=== PATIENT | female | born 1950 | race Caucasian/White ===

== ENCOUNTER 2017-06-12 03:05 | Inpatient (IN) | payer OTHER, MEDICARE ==
[~2017-06-12] VITALS: Ht 172.7 cm; Wt 82.4 kg
[~2017-06-12 03:05] MED LIST: ALEN35TA PO; ARIP10TA15 PO; BENZ1TAB22 GT; BISA5TAB10 PO; CALC-883 PO; DOCU250C34 GT; FAMO20TA8 PO; GABA300C PO; INSU100C7 SQ; MAGN355O3 PO; METF850T2 PO; TOLT4CAP PO; TRAZ-144 PO; TRIA1TAB98 PO
--- NOTE | 2017-06-12 03:05 | NUR ---
TO BED 5 BIB PARAMEDICS C/O SOB X2 MIN SENIOR JAVA PROGRAMMER, RHONCHI HEARD BILATERALLY ON AUSCULTATION. PT AAOX4 NO ACUTE DISTRESS NOTED, RESP EVEN AND UNLABORED. PT ON HHN TX UPON ARRIVAL TO ER. PLACE PT ON CARDIAC MONITORING, CONTINUOUS POX, O2@2L/NC. SL 20G TO L HAND SENIOR JAVA PROGRAMMER.
[2017-06-12] MEDS ORDERED: IPRATROPIUM NEB FS 0.5 MG/2.5 ML AMPUL.NEB ONE (03:12)
[2017-06-12] MEDS ORDERED: ALBUTEROL FS 2.5 MG/3 ML VIAL.NEB ONE ×2 (03:12)
--- NOTE | 2017-06-12 03:15 | NUR ---
STARTED SL 18G TO R FOREARM, BLOOD DRAWN AND SENT TO LAB.
[2017-06-12] MEDS ORDERED: DEXAMETHASONE SOD PHOSPHATE 10 MG/ML VIAL IV ONE (03:30)
[2017-06-12] MEDS ORDERED: ALBUTEROL FS 2.5 MG/3 ML VIAL.NEB NEB ONE ×2 (03:30→04:30)
[2017-06-12] MEDS ORDERED: IPRATROPIUM NEB FS 0.5 MG/2.5 ML AMPUL.NEB NEB ONE (03:30)
--- NOTE | 2017-06-12 03:39 | NUR ---
PT TRANSPORTED TO RADIOLOGY FOR CT.
[2017-06-12 03:44] LABS: BASOPHILS % (AUTO) 0.2 % (0.0-2.0); HEMATOCRIT 33 % (33-45); HEMOGLOBIN 10.5 g/dL (11.5-14.8); LYMPHOCYTES # (AUTO) 0.9 /CMM (0.8-4.8); LYMPHOCYTES % (AUTO) 9.9 % (20.0-44.0); MEAN CORPUSCULAR HEMOGLOBIN 27 PG (26.0-33.0); MEAN CORPUSCULAR HGB CONC 32 g/dl (31.0-36.0); MEAN CORPUSCULAR VOLUME 83 fL (82-100); MONOCYTES # (AUTO) 0.6 /CMM (0.1-1.30); MONOCYTES % (AUTO) 6.5 % (2.0-12.0); NEUTROPHILS # (AUTO) 7.3 /CMM (1.8-8.9); NEUTROPHILS % (AUTO) 83.4 % (43.0-81.0); PLATELET COUNT (AUTO) 336 /CMM (150-450); RDW COEFFICIENT OF VARIATION 17.3 (11.5-15.0); RED BLOOD CELL COUNT(AUTO) 3.97 MIL/uL (4.0-5.2); WHITE BLOOD COUNT (AUTO) 8.8 K/uL (4.3-11.0)
[2017-06-12 03:51] LABS: CALCIUM, SERUM 10.3 mg/dL (8.5-10.1); CREATININE 1.2 mg/dL (0.6-1.3)
[2017-06-12] MEDS ORDERED: DEXAMETHASONE SOD PHOSPHATE 10 MG/ML VIAL ONE (03:51)
[2017-06-12 03:59] LABS: TROPONIN I 0.072 ng/mL (0.00-0.056)
--- NOTE | 2017-06-12 04:00 | NUR ---
PT BACK FROM RADIOLOGY. PENDING CT REASULT.
[2017-06-12 04:01] LABS: INR 3.06 (0.87-1.13); PROTHROMBIN TIME 35.2 SECS (9.5-12.7)
[2017-06-12] MEDS ORDERED: ALBUTEROL FS 2.5 MG/0.5 ML VIAL.NEB ONE (04:02)
[2017-06-12 04:04] LABS: ALBUMIN 2.1 g/dL (3.4-5.0); BILIRUBIN,DIRECT 0.1 mg/dL (0.0-0.2); BILIRUBIN,TOTAL 0.3 mg/dL (0.2-1.0); TOTAL PROTEIN, SERUM 7.7 g/dL (6.4-8.2)
[2017-06-12] MEDS ORDERED: IV NS 0.9% 250 ML IV ONE (04:07)
[2017-06-12] MEDS ORDERED: IOHEXOL-350 100 ML VIAL IV ONE (04:07)
[2017-06-12] MEDS ORDERED: ASPIRIN 300 MG/SUPP.RECT RC ONE ×2 (04:30→05:55)
[2017-06-12] MEDS ORDERED: FUROSEMIDE 20 MG/2 ML VIAL IV SCH (05:30)
[2017-06-12] MEDS ORDERED: BISACODYL (5 MG) 5 MG TABLET.DR PO PRN (05:30)
[2017-06-12] MEDS ORDERED: ONDANSETRON HCL/PF 4 MG/2 ML VIAL IVP PRN (05:30)
[2017-06-12 05:34] LABS: APPEARANCE,URINE SL CLOUDY (CLEAR); BILIRUBIN,URINE NEGATIVE (NEGATIVE); BLOOD, URINE 2+ Ery/uL (NEGATIVE); COLOR,URINE YELLOW (YELLOW); KETONES,URINE NEGATIVE (NEGATIVE); LEUKOCYTE ESTERASE ,URINE 2+ (NEGATIVE); NITRITE, URINE POSITIVE (NEGATIVE); PH,URINE 8.5 (5.0-8.0); PROTEIN,URINE 2+ mg/dl (NEGATIVE); UGLUCOSE NEGATIVE (NEGATIVE); UROBILINOGEN,URINE 0.2 EU/dL (0.2)
[2017-06-12] MEDS ORDERED: DOXYCYCLINE 100 MG VIAL ONE (06:18)
--- NOTE | 2017-06-12 06:21 | NUR ---
RICO RN NOTES RECEIVED REPORT FROM ER NURSE ED
--- NOTE | 2017-06-12 06:22 | NUR ---
ER SPOKE TO IRAM SANCHEZ DNP REGARDING PT ADMISSION. REPORT CALLED TO TELE 1 FOREIGN RASHID. WILL TRANSPORT PT VIA ACLS PROTOCOL.
[2017-06-12 06:30] VITALS: BP 132/58
[2017-06-12] MEDS ORDERED: DOXYCYCLINE 100 MG in IV D5W 100 ML IV SCH (06:30)
--- NOTE | 2017-06-12 06:30 | NUR ---
RICO RN INITIAL NOTES RECEIVED PATIENT VIA EDITH, AWAKE, ALERT, SMILING. UNABLE TO STATE NAME, PLACE, TIME, OR ENVIRONMENT. NO S/S OF PAIN OR DISCOMFORT. NO RESPIRATORY DISTRESS NOTED ON 2LPMO2 VIA NC. SPO2 92%SKIN WARM AND DRY TO TOUCH. PLACED ON TELE MONITOR, SR WITH BBB, PVCS, FIRST DEGREE HB 91. WITH LH 20G PATENT AND INTACT, RFA 18G WITH DOXYCYLINE RUNNING. PLACED PATIENT COMFORTABLY IN BED. PATIENT PLACE COMFORTABLY IN BED. HOB ELEVATED. SIDE RAILS UP AND LOCKED. BED KEPT AT LOWEST POSITION. CALL LIGHT KEPT WITHIN EASY REACH. WILL ENDORSE CONTINUITY OF CARE TO AM NURSE. Addendum: 06/12/17 at 0659 by RACHID OLIVAS RN PER ER REPORT PATIENT HAD LARGE BM BEFORE TRANSFER. PATIENT WITH F/C PATENT AND INTACT, DRAINING BY GRAVITY YELLOW OUTPUT WITH SEDIMENTS.
[2017-06-12 06:32] LABS: BACTERIA,URINE Moderate /HPF (None Seen); SQUAMOUS EPITHELIAL CELL,UR Few /HPF (None Seen)
[2017-06-12 06:33] LABS: TRIPLE PHOSPHATE CRYSTAL,UR Many /HPF (None Seen); URINE AMORPHOUS PHOSPHATES Many /HPF (None Seen)
[2017-06-12 06:43] VITALS: BP 137/50
[2017-06-12] MEDS: IPRATROPIUM NEB FS 0.5 MG/2.5 ML AMPUL.NEB NEB SCH ×5 (07:35→22:57)
[2017-06-12] MEDS: ALBUTEROL FS 2.5 MG/0.5 ML VIAL.NEB NEB SCH ×5 (07:35→22:57)
[2017-06-12 08:00] VITALS: BP 148/76
--- NOTE | 2017-06-12 08:00 | NUR ---
RICO RN NOTE RECEIVED PATIENT IN BED SLEEPING BUR AROUSAL TO TACTILE AND DAMARIS BALE STIMULI , PLACED ON O2 2L NOTED SAT 88-89% , KEEP HOB ELEVATED , NO SOB NOTED , VITAL SIN TAKEN , ON TELE MONITOR SR WITH BBB AND [address] DEG[address] AV BLOCK . RT FA HL INTACT AND PATENT NO S\S INFECTION NOTED, BED IN LOWEST AND LOCKED POSITION , CALL LIGHT WITHIN REACH , Addendum: 06/12/17 at 1120 by MYA OVALLE RN 0800 sleeping but arousal to tactile and verbal stimuli
[2017-06-12 08:16] LABS: ABG BASE EXCESS -2.9 mmol/L; ABG OXYGEN SATURATION 88.9 % (92.0-98.5); ABG PCO2 38.9 mmHg (35.0-45.0); ABG PH 7.372 (7.350-7.450); ABG PO2 59.8 mmHg (75.0-100.0); AaDO2 93.9 mmHg; COHb 0.4 % (0.5-1.5); MetHb 0.5 % (0.0-1.5); O2Hb 88.1 % (94.0-97.0); SITE, ABG Right Brachial
--- NOTE | 2017-06-12 08:30 | NUR ---
RICO RN NOTE CALLED RT ,SAT 88% ON 2L, PATIENT LOOK LETHARGIC NOT VERBALLY RESPONSIVE WELL ,ABG ORDERED STATS,
--- NOTE | 2017-06-12 09:14 | NUR ---
RICO RN NOTE ABG DONE NO SIGNIFICANT CHANGES NOTED SAT ,NOW 96% ,WILL START TO FEED PATIENT WILL CONT TO MONITOR CLOSELY Addendum: 06/12/17 at 0917 by MYA OVALLE RN PATIENT MORE AWAKE VERBALLY RESPONSIVE
[2017-06-12] MEDS: INSULIN DETEMIR 100 UNIT/ML CARTRIDGE SQ SCH ×2 (09:30→17:09)
[2017-06-12] MEDS: DOCUSATE SODIUM 250 MG CAPSULE PO SCH (10:13)
[2017-06-12] MEDS: METFORMIN 850 MG TABLET PO SCH ×3 (10:13→16:38)
[2017-06-12] MEDS: FAMOTIDINE (20 MG) 20 MG TABLET PO SCH (10:13)
[2017-06-12] MEDS: GABAPENTIN 300 MG CAPSULE PO SCH ×3 (10:13→16:38)
[2017-06-12] MEDS: TOLTERODINE 2 MG CAP.SR PO SCH (10:13)
[2017-06-12] MEDS: methylPREDNISolone SOD SUCC 40 MG/ML VIAL IV SCH ×3 (10:13→16:38)
[2017-06-12] MEDS: BENZTROPINE MESYLATE (1 MG) 1 MG TABLET GT SCH ×2 (10:14→16:40)
[2017-06-12] MEDS: ARIPIPRAZOLE 5 MG TABLET PO SCH (10:14)
--- NOTE | 2017-06-12 10:34 | NUR ---
RICO RN NOTE DR GLEZ AT BEDSIDE AWARE ABG RESULT NO NEW ORDER GIVEN
--- NOTE | 2017-06-12 11:21 | NUR ---
lupillo rn note seen by dr bajwa asked about dvt prophylaxis , stated no dvt pumps ,only Coumadin at this time
[2017-06-12] MEDS ORDERED: IV 1/2NS 1000 ML 1,000 ML IV PRN (11:30)
[2017-06-12] MEDS: LEVOFLOXACIN (500MG) 500 MG TABLET PO SCH (11:45)
--- NOTE | 2017-06-12 11:46 | NUR ---
RICO RN NOTE STARTED ON IVVF ORDERED ,ON BREATHING TX BY RT
[2017-06-12 12:00] VITALS: BP 144/74
[2017-06-12] MEDS ORDERED: BLOOD SUGAR DIAGNOSTIC 1 EACH STRIP IN SCH (12:00)
--- NOTE | 2017-06-12 12:35 | NUR ---
RICO RN NOTE SPOKE WITH DR MOSQUERA NOTIFIED THAT BLOOD SUGAR 446 MG\DL ORDERED ACU CHECK WITH AGGRESSIVE SLIDING SCALE ORDER CARRIED OUR ALSO AWARE THAT PATIENT ON IVF AND BNP [address] THAT [address] DR GLEZ ORDERE 1/2 NS AT 80 ML PER HOUR , STATED OK TO CONT FOR NOW
[2017-06-12] MEDS ORDERED: DEXTROSE 50%-WATER 50 ML DISP.SYRIN IV PRN (13:00)
[2017-06-12] MEDS: INSULIN REGULAR, HUMAN 100 UNIT/ML 3 ML VIAL SQ PRN ×2 (13:09→17:40)
--- NOTE | 2017-06-12 14:54 | NUR ---
RICO RN NOTE SPOKE WITH DR DRISCOLL AUTO BODY MECHANIC NOTIFIED THAT INR 3.03 ON COUMADIN 2 MG OK TO GIVE TODAY THIS DOSE ALSO NOTIFIED ABOUT BNP NOTIFIED THAT ON IVF AT 80 ML PER HOUR ,STATED THAT WILL CHECK IT OUT Addendum: 06/12/17 at 1647 by MYA OVALLE RN RICO CARRASQUILLO NOTE SPOKE WIT DR DRISCOLL AUTO BODY MECHANIC NOTICED THAT BP 175/86 ORDERED HYDRALAZINE 25 MG PO Q4 HOUR PRN
[2017-06-12 16:00] VITALS: BP_SYST 144; BP_SYST 175; BP_DIAS 74; BP_DIAS 86
[2017-06-12] MEDS: WARFARIN SODIUM 2 MG TABLET PO SCH (16:38)
[2017-06-12] MEDS ORDERED: hydrALAZINE HCL 25 MG TABLET PO PRN (17:00)
--- NOTE | 2017-06-12 17:00 | NUR ---
lupillo ewing BP 175/[address] BERNARD AIRPORT REPRESENTATIVE WITH ORDER HYDRALAZINE 25 MG PO Q4 HOUR
--- NOTE | 2017-06-12 17:20 | NUR ---
RICO RN NOTE RECHECK BP 140/80, WILL F\U
[2017-06-12] MEDS: BLOOD SUGAR DIAGNOSTIC 1 EACH STRIP IN SCH ×2 (17:36→22:13)
--- NOTE | 2017-06-12 18:38 | NUR ---
RICO RN NOTE BLOOD SUGAR 430 DR HERRERA NOTIFIED 20 UNITS REGULAR INSULIN GIVEN ,STATED RECHECK AT 1930 IF STILL HIGH CALL TO
--- NOTE | 2017-06-12 19:19 | NUR ---
RICO RN NOTE RESTING COMFORTABLY , ENDORSED NEXT SHIFT RN ABOUT BLOOD SUGAR
--- NOTE | 2017-06-12 19:54 | NUR ---
RN NOTES 191 received awake in bed. On o2 inhalation; HOB elevated. Both saline locks patent and intact. Call light within reach 1934 BS rechecked as per instruction 428, sakina CLOUD non clinical advisor. Spoke to Dr. Livingston, made him aware of BS 428. Also notified him that he was given glucophage 850 @1638; levemir 30 units @ 1700; regular insulin 20 units @ 1740. Ordered to give one time regular insulin 20 units; noted and carried out. Addendum: 06/13/17 at 0651 by RISA OWUSU RN 2212 BS taken as 389, 20 units regular insulin given with snacks provided. will continue to monitor 0600 slept at long intervals. No signs of distress at this time. Condition unchanged. 0645 BS 216, covered with 8 units regular insulin. Call light within reach.
[2017-06-12 20:00] VITALS: BP 148/62
[2017-06-12] MEDS ORDERED: INSULIN REGULAR, HUMAN 100 UNIT/ML 10 ML VIAL SQ ONE (20:00)
[2017-06-12] MEDS: TRAZODONE 50 MG TABLET PO SCH (22:11)
[2017-06-12] MEDS: *INSULIN REGULAR(HUMULIN R)HUM 100 UNIT/ML VIAL SQ PRN (22:15)
[2017-06-13] VITALS: BP 144/59
[2017-06-13] MEDS: ALBUTEROL FS 2.5 MG/0.5 ML VIAL.NEB NEB SCH ×6 (03:05→23:28)
[2017-06-13] MEDS: IPRATROPIUM NEB FS 0.5 MG/2.5 ML AMPUL.NEB NEB SCH ×6 (03:05→23:28)
[2017-06-13 04:00] VITALS: BP 141/62
[2017-06-13 06:31] LABS: BASOPHILS % (AUTO) 0.1 % (0.0-2.0); EOSINOPHILS % (AUTO) 0.1 % (0.0-6.0); HEMATOCRIT 33 % (33-45); HEMOGLOBIN 10.5 g/dL (11.5-14.8); LYMPHOCYTES # (AUTO) 0.8 /CMM (0.8-4.8); LYMPHOCYTES % (AUTO) 8.1 % (20.0-44.0); MEAN CORPUSCULAR HEMOGLOBIN 27 PG (26.0-33.0); MEAN CORPUSCULAR HGB CONC 32 g/dl (31.0-36.0); MEAN CORPUSCULAR VOLUME 85 fL (82-100); MONOCYTES # (AUTO) 0.6 /CMM (0.1-1.30); MONOCYTES % (AUTO) 6.8 % (2.0-12.0); NEUTROPHILS # (AUTO) 7.9 /CMM (1.8-8.9); NEUTROPHILS % (AUTO) 84.9 % (43.0-81.0); PLATELET COUNT (AUTO) 313 /CMM (150-450); RDW COEFFICIENT OF VARIATION 16.7 (11.5-15.0); RED BLOOD CELL COUNT(AUTO) 3.87 MIL/uL (4.0-5.2); WHITE BLOOD COUNT (AUTO) 9.3 K/uL (4.3-11.0)
[2017-06-13] MEDS: BLOOD SUGAR DIAGNOSTIC 1 EACH STRIP IN SCH ×4 (06:37→21:18)
[2017-06-13] MEDS: INSULIN REGULAR, HUMAN 100 UNIT/ML 3 ML VIAL SQ PRN ×3 (06:38→16:57)
[2017-06-13 07:03] LABS: THYROID STIMULATING HORMONE 0.099 uIU/mL (0.358-3.74)
--- NOTE | 2017-06-13 07:10 | NUR ---
RICO INITIAL NOTE RECEIVED PT IN BED, ASLEEP, EASY TO AROUSE,ABLE TO FOLLOW COMMANDS, RESPONSIVE TO NAME, PT IS ON 2L NC, SATING WELL, BREATHING IS UNLABORED AND EVEN, NO S/S OF SOB OR RESP.DISTRESSED NOTED AT THIS TIME, PT IS ON TELE MONITOR SHOWING SR W/1 DEGREE AV BLOCK @ 73 BPM, NO CHEST PAIN OR DISCOMFORT NOTED AT THIS TIME, PT HAS F/C DRAINING YELLOW URINE TO GRAVITY, PT IS NOTED WITH MULTIPLE SKIN ISSUES, ON KCI MATTRESS, ALL TREATMENTS ACK AND WILL BE CARRIED OUT,PT HAS RFA#18G, SL, L HAND #20G,SL,C/D/I/PATENT, FLUSHING WELL,NO S/S OF INFECTION/ INFILTRATION NOTED AT THIS TIME, ALL SAFETY MEASURES IN PLACE AT ALL TIMES, CALL LIGHT WITHIN EASY REACH, WILL MONITOR PT CLOSELY FOR CHANGES
[2017-06-13 07:11] LABS: ALBUMIN 2.1 g/dL (3.4-5.0); BILIRUBIN,TOTAL 0.2 mg/dL (0.2-1.0); CREATININE 1.2 mg/dL (0.6-1.3); MAGNESIUM 2.3 mg/dL (1.8-2.4); PHOSPHORUS 3.5 mg/dL (2.5-4.9); TOTAL PROTEIN, SERUM 7.6 g/dL (6.4-8.2)
[2017-06-13] MEDS ORDERED: Z GUARD REMEDY 4 OZ OINT TP PRN (07:30)
[2017-06-13 08:00] VITALS: BP 129/54
--- NOTE | 2017-06-13 08:00 | NUR ---
RICO NOTE UNABLE TO PALPATED BILATERAL FOOT PULSES, ABLE TO HEAR WITH DOPPLER, BILATERAL FEET WARM TO TOUCH, NO C/O OF PAIN.
--- NOTE | 2017-06-13 08:01 | NUR ---
HHN DEFERRED PT EATING BREAKFAST AT THIS TIME ZERO DISTRESS NOTED. RESP. 20 SAT 96%
[2017-06-13] MEDS: DOCUSATE SODIUM 250 MG CAPSULE PO SCH (08:37)
[2017-06-13] MEDS: METFORMIN 850 MG TABLET PO SCH ×3 (08:37→16:55)
[2017-06-13] MEDS: ARIPIPRAZOLE 5 MG TABLET PO SCH (08:37)
[2017-06-13] MEDS: GABAPENTIN 300 MG CAPSULE PO SCH ×3 (08:37→16:55)
[2017-06-13] MEDS: methylPREDNISolone SOD SUCC 40 MG/ML VIAL IV SCH ×3 (08:38→16:55)
[2017-06-13] MEDS: TOLTERODINE 2 MG CAP.SR PO SCH (08:38)
[2017-06-13] MEDS: BENZTROPINE MESYLATE (1 MG) 1 MG TABLET GT SCH ×2 (08:38→16:55)
[2017-06-13] MEDS: HYDROGEL DRESSING 90 GM TUBE TP SCH (08:44)
[2017-06-13] MEDS: FAMOTIDINE (20 MG) 20 MG TABLET PO SCH (08:44)
[2017-06-13] MEDS: INSULIN DETEMIR 100 UNIT/ML CARTRIDGE SQ SCH ×2 (08:46→16:56)
[2017-06-13 11:03] LABS: PROTHROMBIN TIME 61.2 SECS (9.5-12.7)
[2017-06-13 11:06] LABS: INR 5.15 (0.87-1.13)
--- NOTE | 2017-06-13 11:18 | NUR ---
RICO NOTE LAB CALLED PT 61.2, INR 5.15, AWARE, ORDERED TO HOLD COUMADIN DOSE @ 1700
[2017-06-13] MEDS: LEVOFLOXACIN (500MG) 500 MG TABLET PO SCH (11:55)
[2017-06-13 12:00] VITALS: BP 149/69
[2017-06-13] MEDS: WARFARIN SODIUM 2 MG TABLET PO SCH (12:34)
--- NOTE | 2017-06-13 15:32 | NUR ---
RICO NOTE LAB CALLED BLOOD CULTURE PRELIMINARY REPORT SHOWS GRAM NEGATIVE RODS, AWARE, NO NEW ORDERS AT THIS TIME
[2017-06-13 16:00] VITALS: BP 131/74
--- NOTE | 2017-06-13 19:30 | NUR ---
RN INITIAL NOTES RECEIVED PT AWAKE ON BED, A/O X2-3 WITH PERIODS OF CONFUSION. ON 2L NASAL CANNULA, SATURATING WELL. CURRENTLY SR ON THE MONITOR, HR 70'S. SALAZAR CATH IN PLACE. RIGHT FOREARM 18G AND LEFT HAND 20G BOTH FLUSHED AND PATENT, NO S/S OF INFILTRATION/INFECTION, DRESSINGS INTACT. BED LOW AND LOCKED, SIDERAILS UP, CALL LIGHT WITHIN REACH. WILL MONITOR.
[2017-06-13 20:00] VITALS: BP 145/75
[2017-06-13] MEDS: TRAZODONE 50 MG TABLET PO SCH (21:18)
[2017-06-13] MEDS: *INSULIN REGULAR(HUMULIN R)HUM 100 UNIT/ML VIAL SQ PRN (21:19)
[2017-06-14] MEDS: IPRATROPIUM NEB FS 0.5 MG/2.5 ML AMPUL.NEB NEB SCH ×5 (03:21→19:44)
[2017-06-14] MEDS: ALBUTEROL FS 2.5 MG/0.5 ML VIAL.NEB NEB SCH ×5 (03:21→19:44)
[2017-06-14 04:00] VITALS: BP 142/98
--- NOTE | 2017-06-14 06:00 | NUR ---
RN CLOSING NOTES PT REMAINS STABLE OF THE MOMENT. ALL DUE MEDS GIVEN. AM CARE PROVIDED. WILL ENDORSE DELVIN TO AM RN
[2017-06-14] MEDS: BLOOD SUGAR DIAGNOSTIC 1 EACH STRIP IN SCH ×4 (06:31→21:29)
[2017-06-14] MEDS: INSULIN REGULAR, HUMAN 100 UNIT/ML 3 ML VIAL SQ PRN ×2 (06:33→17:35)
[2017-06-14 06:49] LABS: PROTHROMBIN TIME 87.2 SECS (9.5-12.7)
[2017-06-14 06:53] LABS: INR 7.19 (0.87-1.13)
--- NOTE | 2017-06-14 07:00 | NUR ---
RN NOTES SPOKE TO DR GOODE ON THE PHONE TO NOTIFY OF CRITICAL INR 7.19, NO NEW ORDERS OF THE MOMENT
[2017-06-14 08:00] VITALS: BP 131/59
[2017-06-14] MEDS: ACETAMINOPHEN 325 MG TABLET PO PRN (09:25)
[2017-06-14] MEDS: METFORMIN 850 MG TABLET PO SCH ×3 (09:26→16:04)
[2017-06-14] MEDS: FAMOTIDINE (20 MG) 20 MG TABLET PO SCH (09:26)
[2017-06-14] MEDS: ARIPIPRAZOLE 5 MG TABLET PO SCH (09:26)
[2017-06-14] MEDS: GABAPENTIN 300 MG CAPSULE PO SCH ×3 (09:26→16:04)
[2017-06-14] MEDS: DOCUSATE SODIUM 250 MG CAPSULE PO SCH (09:27)
[2017-06-14] MEDS: TOLTERODINE 2 MG CAP.SR PO SCH (09:27)
[2017-06-14] MEDS: BENZTROPINE MESYLATE (1 MG) 1 MG TABLET GT SCH ×2 (09:30→16:04)
[2017-06-14] MEDS: methylPREDNISolone SOD SUCC 40 MG/ML VIAL IV SCH (09:30)
[2017-06-14] MEDS: CADEXOMER IODINE 40 GM TUBE TP SCH (09:34)
[2017-06-14] MEDS: HYDROGEL DRESSING 90 GM TUBE TP SCH (09:34)
[2017-06-14] MEDS: INSULIN DETEMIR 100 UNIT/ML CARTRIDGE SQ SCH ×2 (09:38→17:36)
[2017-06-14 12:39] LABS: BASOPHILS % (AUTO) 0.1 % (0.0-2.0); HEMATOCRIT 32 % (33-45); HEMOGLOBIN 10.1 g/dL (11.5-14.8); LYMPHOCYTES # (AUTO) 0.4 /CMM (0.8-4.8); LYMPHOCYTES % (AUTO) 3.1 % (20.0-44.0); MEAN CORPUSCULAR HEMOGLOBIN 27 PG (26.0-33.0); MEAN CORPUSCULAR HGB CONC 32 g/dl (31.0-36.0); MEAN CORPUSCULAR VOLUME 84 fL (82-100); MONOCYTES # (AUTO) 0.2 /CMM (0.1-1.30); MONOCYTES % (AUTO) 1.8 % (2.0-12.0); NEUTROPHILS # (AUTO) 11.1 /CMM (1.8-8.9); PLATELET COUNT (AUTO) 308 /CMM (150-450); RDW COEFFICIENT OF VARIATION 16.3 (11.5-15.0); RED BLOOD CELL COUNT(AUTO) 3.81 MIL/uL (4.0-5.2); WHITE BLOOD COUNT (AUTO) 11.7 K/uL (4.3-11.0)
[2017-06-14 12:46] LABS: CREATININE 1.1 mg/dL (0.6-1.3); MAGNESIUM 1.7 mg/dL (1.8-2.4); POTASSIUM 4.4 mmol/L (3.5-5.1)
[2017-06-14 16:00] VITALS: BP 122/51
[2017-06-14] MEDS: CEFTRIAXONE 1 G in IV D5W 50 ML IV SCH (16:00)
--- NOTE | 2017-06-14 19:15 | NUR ---
RN NOTES PT ASLEEP WELL ON BED DURING ROUNDS AOX 1-2 WHEN AWAKE. NO ACUTE RESP DISTRESS TOLERATED O2 2LPM VIA NC. WARMTH TO TOUCH, AFEBRILE. IV SITE ON RFA G 12 HL INTACTY AND PATENT. FLUSHED WELL. F/ DRAINED WITH YELLOW CLEAR COLOR URINE. DENIES PAIN. OFFLOADED EXT WITH PILLOWS. CALL LIGHT KEPT WITHIN EASY REACH.
[2017-06-14 20:00] VITALS: BP 143/76
[2017-06-14] MEDS: TRAZODONE 50 MG TABLET PO SCH (21:22)
[2017-06-14] MEDS: *INSULIN REGULAR(HUMULIN R)HUM 100 UNIT/ML VIAL SQ PRN (21:35)
[2017-06-15] MEDS: ALBUTEROL FS 2.5 MG/0.5 ML VIAL.NEB NEB SCH ×5 (00:19→15:30)
[2017-06-15] MEDS: IPRATROPIUM NEB FS 0.5 MG/2.5 ML AMPUL.NEB NEB SCH ×5 (00:19→15:30)
[2017-06-15 04:00] VITALS: BP 131/55
[2017-06-15 06:37] LABS: BASOPHILS % (AUTO) 0.2 % (0.0-2.0); EOSINOPHILS % (AUTO) 0.1 % (0.0-6.0); HEMATOCRIT 39 % (33-45); HEMOGLOBIN 12.2 g/dL (11.5-14.8); LYMPHOCYTES % (AUTO) 10.2 % (20.0-44.0); MEAN CORPUSCULAR HEMOGLOBIN 26 PG (26.0-33.0); MEAN CORPUSCULAR HGB CONC 31 g/dl (31.0-36.0); MEAN CORPUSCULAR VOLUME 84 fL (82-100); MONOCYTES # (AUTO) 0.1 /CMM (0.1-1.30); MONOCYTES % (AUTO) 1.3 % (2.0-12.0); NEUTROPHILS # (AUTO) 8.6 /CMM (1.8-8.9); NEUTROPHILS % (AUTO) 88.2 % (43.0-81.0); PLATELET COUNT (AUTO) 250 /CMM (150-450); RDW COEFFICIENT OF VARIATION 16.7 (11.5-15.0); RED BLOOD CELL COUNT(AUTO) 4.64 MIL/uL (4.0-5.2); WHITE BLOOD COUNT (AUTO) 9.8 K/uL (4.3-11.0)
[2017-06-15 06:48] LABS: CALCIUM, SERUM 11.1 mg/dL (8.5-10.1); CREATININE 1.1 mg/dL (0.6-1.3); MAGNESIUM 1.9 mg/dL (1.8-2.4); PHOSPHORUS 2.7 mg/dL (2.5-4.9); POTASSIUM 4.7 mmol/L (3.5-5.1)
[2017-06-15] MEDS: BLOOD SUGAR DIAGNOSTIC 1 EACH STRIP IN SCH ×3 (07:49→18:14)
[2017-06-15 08:00] VITALS: BP 112/59
[2017-06-15] MEDS ORDERED: FLUTICASONE/VILANTEROL 1 EACH BLST.W.DEV IH SCH (09:00)
[2017-06-15] MEDS: METFORMIN 850 MG TABLET PO SCH ×3 (09:00→18:12)
[2017-06-15] MEDS: INSULIN DETEMIR 100 UNIT/ML CARTRIDGE SQ SCH ×2 (09:00→18:18)
[2017-06-15] MEDS ORDERED: predniSONE 20 MG TABLET PO SCH (09:00)
[2017-06-15] MEDS: GABAPENTIN 300 MG CAPSULE PO SCH ×3 (09:55→18:12)
[2017-06-15] MEDS: ARIPIPRAZOLE 5 MG TABLET PO SCH (09:55)
[2017-06-15] MEDS: TOLTERODINE 2 MG CAP.SR PO SCH (09:55)
[2017-06-15] MEDS: FAMOTIDINE (20 MG) 20 MG TABLET PO SCH (09:55)
[2017-06-15] MEDS: DOCUSATE SODIUM 250 MG CAPSULE PO SCH (09:55)
[2017-06-15] MEDS: BENZTROPINE MESYLATE (1 MG) 1 MG TABLET GT SCH ×2 (09:56→17:00)
[2017-06-15] MEDS: HYDROGEL DRESSING 90 GM TUBE TP SCH (09:58)
[2017-06-15] MEDS: CADEXOMER IODINE 40 GM TUBE TP SCH (09:58)
[2017-06-15] MEDS ORDERED: CEFT1VIA6 IV (12:03)
[2017-06-15] MEDS ORDERED: CADE40GE2 TP (12:03)
[2017-06-15] MEDS: CEFTRIAXONE 1 G in IV D5W 50 ML IV SCH (13:19)
[2017-06-15 16:00] VITALS: BP 129/55
[2017-06-15] MEDS: ACETAMINOPHEN 325 MG TABLET PO PRN (18:12)
--- NOTE | 2017-06-15 19:15 | NUR ---
RN NOTE PT D/C'D TO [facility], IN STABLE CONDITION VIA AMBULANCE, MESSAGE LEFT TO STEPHANIE, MOTHER OF THE PT, EXIT CARE PROVIDED TO PT, DISCHARGE INSTRUCTIONS GIVEN TO AMBULANCE, IV LEFT IN PLACE, DUE TO ABX TREATMENT, SALAZAR CATHETER REMOVED, PT HAD NO BELONGINGS, PICTURES TAKEN AND LEFT IN CHART, REPORT GIVEN TO FOREIGN VILLATORO.
== END 2017-06-15 20:14 | DRG 133 ==
LOC: ER 03:07 → TELE-TD 04:34 → MEDSG1 06-13 22:24
PROVIDERS: ADMIT Nurse Practitioner Acute Care; ATTEND Nurse Practitioner Acute Care
DX: J96.01 Acute respiratory failure with hypoxia (principal); I21.4 Non-ST elevation (NSTEMI) myocardial infarction; N17.0 Acute kidney failure with tubular necrosis; E43 Unspecified severe protein-calorie malnutrition; I50.33 Acute on chronic diastolic (congestive) heart failure; G93.40 Encephalopathy, unspecified; I13.0 Hypertensive heart and chronic kidney disease with heart failure and stage 1 through stage 4 chronic kidney disease, or unspecified chronic kidney disease; E86.0 Dehydration; L89.153 Pressure ulcer of sacral region, stage 3; I27.2 Other secondary pulmonary hypertension; E66.01 Morbid (severe) obesity due to excess calories; E11.22 Type 2 diabetes mellitus with diabetic chronic kidney disease; J44.1 Chronic obstructive pulmonary disease with (acute) exacerbation; K21.9 Gastro-esophageal reflux disease without esophagitis; I25.10 Atherosclerotic heart disease of native coronary artery without angina pectoris; M81.0 Age-related osteoporosis without current pathological fracture; N39.0 Urinary tract infection, site not specified; Z86.711 Personal history of pulmonary embolism; Z87.891 Personal history of nicotine dependence; N18.9 Chronic kidney disease, unspecified; E66.9 Obesity, unspecified; Z68.27 Body mass index [BMI] 27.0-27.9, adult; L89.629 Pressure ulcer of left heel, unspecified stage; E11.621 Type 2 diabetes mellitus with foot ulcer; L97.529 Non-pressure chronic ulcer of other part of left foot with unspecified severity; F31.9 Bipolar disorder, unspecified; E11.65 Type 2 diabetes mellitus with hyperglycemia; B96.89 Other specified bacterial agents as the cause of diseases classified elsewhere; E11.51 Type 2 diabetes mellitus with diabetic peripheral angiopathy without gangrene; E11.42 Type 2 diabetes mellitus with diabetic polyneuropathy; Z79.01 Long term (current) use of anticoagulants
CPT/HCPCS: 36415; 36600; 70450-TC; 71010-TC; 80048-TC; 80053-TC; 80061-TC; 80076-TC; 81000-TC; 82803-TC; 82962-TC; 83605-TC; 83735-TC; 83880; 84100-TC; 84443-TC; 84484-TC; 85025-TC; 85610-TC; 85730-TC; 87040-TC; 87081-TC; 87086-TC; 87186-TC; 87400; 93307-TC; 94799-TC; A4606; A6248; A6402; J0696; J1100; J1815; J2920; J3490; J7042; J7050; J7060; Q9967; Z7610

== ENCOUNTER 2017-07-03 00:46 | Inpatient (IN) | payer OTHER, MEDICARE ==
[~2017-07-03] VITALS: Ht 162.6 cm; Wt 113.9 kg
[2017-07-03] VITALS (94 sets, daily range): BP systolic 54–115; BP diastolic 14–78
[~2017-07-03 00:46] MED LIST changes: +CADE40GE2 TP; +CEFT1VIA6 IV
--- NOTE | 2017-07-03 00:46 | NUR ---
TO BED 5 A 66 YO FEMALE PT BIBA#60 FOR CARDIAC ARREST CPR STARTED PRIOR TO ARRIVAL BY EMS 1 MG OF GLUCAGON WAS GIVEN ON THE FIELD. UPON ARRIVAL TO ER, PATIENT HAS NO PULSE, NO SPONTANEOUS BREATHING, PUPILS NONREACTIVE. ONGOING CPR AND BVM. ALISSA MELVIN TEAM AT BEDSIDE UNDER DR MONTES. SEE ALISSA BLUE SHEET FOR DETAILS.
--- NOTE | 2017-07-03 00:47 | NUR ---
PATIENT WAS INTUBATED BY DR MONTES USING ETT 7 AT 22CM ON THE LIP, PATIENT CONNECTED THEN TO THE [facility] VENT WITH FOLLOWING SETTINGS: AC, 14, TC 500, FIO2 100%, PEEP 5. MAINTAINED PATENT AIRWAY. 94% O2 SATURATION NOTED.
--- NOTE | 2017-07-03 00:49 | NUR ---
15G IO ESTABLISHED ON THE LEFT ANTERIOR TIBIA.
--- NOTE | 2017-07-03 00:57 | NUR ---
after 2 doses of epinephrine iv, calcium, sodium bicarb and 2 defibrillations, patient returned to spontaneous circulation with NSR on the monitor and positive pulse. HR 102, BP 141/88. Close cardiac and vs monitor ongoing.
[2017-07-03] MEDS ORDERED: CEFTRIAXONE 1 G in IV D5W 50 ML IV ONE (01:00)
[2017-07-03] MEDS ORDERED: IV NS 0.9% 500 ML BAG IV ONE (01:00)
[2017-07-03] MEDS ORDERED: DOPamine 400 MG in IV D5W 250 ML IV ONE (01:00)
--- NOTE | 2017-07-03 01:07 | NUR ---
icu bed 254
[2017-07-03] MEDS ORDERED: DEXTROSE 50%-WATER 50 ML DISP.SYRIN ONE (01:14)
--- NOTE | 2017-07-03 01:17 | NUR ---
ACCANAND DONE AND PATIENT REGISTERED LOW, DR MONTES NOTIFIED, AND RECEIVED ORDERS FOR 2 AMPS OF D50. NOTED AND CARRIED OUT.
--- NOTE | 2017-07-03 01:26 | NUR ---
registered health nurse at bedside to draw blood.
[2017-07-03] MEDS ORDERED: DEXTROSE 50%-WATER 50 ML DISP.SYRIN IVP ONE ×3 (01:30→07:00)
--- NOTE | 2017-07-03 01:32 | NUR ---
Dr Bradley at bedside to place a central line.
[2017-07-03 01:45] LABS: BASOPHILS # (AUTO) 0.2 /CMM (0.0-0.2); BASOPHILS % (AUTO) 0.8 % (0.0-2.0); EOSINOPHILS % (AUTO) 0.1 % (0.0-6.0); HEMATOCRIT 32 % (33-45); HEMOGLOBIN 9.5 g/dL (11.5-14.8); LYMPHOCYTES # (AUTO) 2.7 /CMM (0.8-4.8); MEAN CORPUSCULAR HEMOGLOBIN 26 PG (26.0-33.0); MEAN CORPUSCULAR HGB CONC 30 g/dl (31.0-36.0); MEAN CORPUSCULAR VOLUME 86 fL (82-100); MONOCYTES # (AUTO) 0.3 /CMM (0.1-1.30); MONOCYTES % (AUTO) 1.2 % (2.0-12.0); NEUTROPHILS # (AUTO) 19.2 /CMM (1.8-8.9); NEUTROPHILS % (AUTO) 85.9 % (43.0-81.0); PLATELET COUNT (AUTO) 436 /CMM (150-450); RDW COEFFICIENT OF VARIATION 18.1 (11.5-15.0); WHITE BLOOD COUNT (AUTO) 22.4 K/uL (4.3-11.0)
--- NOTE | 2017-07-03 01:45 | NUR ---
repeat accucheck done, patient's glucose is 322.
--- NOTE | 2017-07-03 01:45 | NUR ---
started patient on levophed drip at 10mcg/min per Dr Bradley's verbal order for bp 75/24, hr 73, nsr on the monitor.
--- NOTE | 2017-07-03 01:50 | NUR ---
Noted patient with rectal temperature of 91.6F, Shanika Hugger placed. will continue to monitor.
[2017-07-03] MEDS ORDERED: CEFTRIAXONE 1 G VIAL ONE (01:53)
--- NOTE | 2017-07-03 01:55 | NUR ---
right IJ central line placed by Dr Bradley
[2017-07-03 02:05] LABS: ABG OXYGEN SATURATION 99.2 % (92.0-98.5); ABG PCO2 31.6 mmHg (35.0-45.0); ABG PH 6.647 (7.350-7.450); ABG PO2 510.8 mmHg (75.0-100.0); AaDO2 170.6 mmHg; COHb 0.3 % (0.5-1.5); MetHb 0.8 % (0.0-1.5); O2Hb 98.1 % (94.0-97.0); PEEP,BG 5 cm H2O; SITE, ABG Right Brachial; VENT MODE, BG AC 14 500 100% +5; VT, ABG 500 mL
[2017-07-03 02:06] LABS: SERUM AMMONIA 179 umol/L (11-32)
[2017-07-03 02:10] LABS: TROPONIN I 0.268 ng/mL (0.00-0.056)
[2017-07-03 02:13] LABS: ALBUMIN 1.7 g/dL (3.4-5.0); BILIRUBIN,DIRECT 0.1 mg/dL (0.0-0.2); BILIRUBIN,TOTAL 0.3 mg/dL (0.2-1.0); CREATININE 4.6 mg/dL (0.6-1.3); MAGNESIUM 2.7 mg/dL (1.8-2.4); TOTAL PROTEIN, SERUM 5.9 g/dL (6.4-8.2)
--- NOTE | 2017-07-03 02:18 | NUR ---
PT RECEIVED FROM [facility] CPR IN PROGRESS. PT INTUBATED BY DR MONTES. CPR CONTINUED. PULSE RETURNED AND PT PLACED ON VENT AC 14 500 100% +5 AMBU BAG AT BEDSIDE ALARMS SET AND AUDIBLE. SUCTIONED A SMALL AMOUNT OF THIN RED SECRETIONS BREATH SOUNDS EQUAL BILATERAL PT RECEIVING NO BREATHING TX AT THIS TIME Addendum: 07/03/17 at 0222 by JIMBO BERRIOS RT Amended: Links added.
[2017-07-03 02:24] LABS: POTASSIUM 7.4 mmol/L (3.5-5.1)
[2017-07-03] MEDS ORDERED: Calcium Gluconate 0.465 MEQ/ML VIAL IV ONE (02:25)
[2017-07-03 02:27] LABS: PHOSPHORUS 12.9 mg/dL (2.5-4.9)
[2017-07-03] MEDS ORDERED: SODIUM BICARBONATE SYR 50 MEQ/50 ML DISP.SYRIN IV ONE ×3 (02:30→15:01)
--- NOTE | 2017-07-03 02:33 | NUR ---
calcium gluconate given ivpb to the Right IJ central line per Dr Bradley's order.
[2017-07-03] MEDS ORDERED: SODIUM POLYSTYRENE SULFONATE 15 G/60 ML BOTTLE ONE (02:39)
[2017-07-03 02:40] LABS: APPEARANCE,URINE CLOUDY (CLEAR); COLOR,URINE Light yellow (YELLOW); PROTEIN,URINE 3+ mg/dl (NEGATIVE); UGLUCOSE NEGATIVE (NEGATIVE)
[2017-07-03 02:41] LABS: BILIRUBIN,URINE NEGATIVE (NEGATIVE); BLOOD, URINE 3+ Ery/uL (NEGATIVE); KETONES,URINE NEGATIVE (NEGATIVE); LEUKOCYTE ESTERASE ,URINE 3+ (NEGATIVE); NITRITE, URINE NEGATIVE (NEGATIVE); UROBILINOGEN,URINE 0.2 EU/dL (0.2)
[2017-07-03] MEDS: SODIUM BICARBONATE SYR 150 MEQ in IV NS 0.9% 1,000 ML IV ONE ×2 (02:48→03:00)
[2017-07-03 02:50] LABS: BACTERIA,URINE 2+ /HPF (None Seen); SQUAMOUS EPITHELIAL CELL,UR Few /HPF (None Seen); WBC,URINE 21-50 /HPF (0-3); YEAST,URINE Many /HPF (None Seen)
[2017-07-03 03:02] LABS: INR 1.26 (0.87-1.13); PROTHROMBIN TIME 13.7 SECS (9.5-12.7)
[2017-07-03] MEDS ORDERED: INSULIN REGULAR, HUMAN 100 UNIT/ML 10 ML VIAL ONE (03:04)
--- NOTE | 2017-07-03 03:19 | NUR ---
Report givent to Ed RN for house rn for alicia.
--- NOTE | 2017-07-03 03:21 | NUR ---
Transferred patient to ICU floor via als protocol, no incident noted.
[2017-07-03] MEDS ORDERED: DOPamine 400MG/D5W 250ML RTU 250 ML IV ONE ×2 (03:27→05:27)
[2017-07-03] MEDS ORDERED: NOREPINEPHRINE 8 MG in IV D5W 500 ML IV PRN (03:30)
[2017-07-03] MEDS ORDERED: Sodium Bicarbonate 100 MEQ in IV D5/0.45 NACL 1,000 ML IV PRN (03:30)
[2017-07-03] MEDS ORDERED: INSULIN REGULAR, HUMAN 100 UNIT/ML 3 ML VIAL IV ONE ×2 (03:30→07:00)
[2017-07-03] MEDS ORDERED: ACETAMINOPHEN 650 MG/SUPP.RECT RC PRN (03:30)
[2017-07-03] MEDS ORDERED: MORPHINE SULFATE INJ 2 MG/ML DISP.SYRIN IV PRN (03:30)
[2017-07-03 03:40] LABS: BAND % (MANUAL) 2 % (0.0-5.0); LYMPHOCYTES % (MANUAL) 17 % (16-48); MONOCYTES % (MANUAL) 2 % (0-11.0); NEUTROPHILS % (MANUAL) 79 (42-76)
[2017-07-03] MEDS: DOPamine 400 MG in IV D5W 250 ML IV PRN ×8 (03:44→23:28)
--- NOTE | 2017-07-03 03:45 | NUR ---
CYBERATHLETE INITIAL NOTE RECEIVED PT FROM ED ASSISTANT CUSTOMER SERVICE MANAGER, PT HAD ARRIVED @ 0330 FROM ER. PT S/P CARDIO/PULMONARY ARREST FROM [facility]. PT IS IN BED, INTUBATED 7/22CM, ON VENT AC 14, TV 500, FI02 100%, PEEP 5. PUPILS NON REACTIVE AT 4. LUNG SOUNDS RHONCHI. BOWEL SOUNDS PRESENT. MULTIPLE SKIN ISSUES, PICTURES TAKEN AND PLACED IN CHART. IV PATENT AND INTACT. SALAZAR INTACT AND DRAINING CLOUDY URINE. HR UNCONTROLLED AFIB LOW 100'S. BP LOW ON PRESSORS LEVOPHED AND DOPAMINE. TEMPERATURE REMAINS LOW AT 91.9 [address] IN PL[address]. BED IN LOW LOCKED POSITION. WILL CONTINUE TO MONITOR.
[2017-07-03] MEDS ORDERED: NOREPINEPHRINE 8 MG in IV D5W 500 ML IV ONE (04:30)
[2017-07-03] MEDS ORDERED: Calcium Gluconate 1GM/10ML 4.65 MEQ in IV D5W 50 ML IV ONE (04:30)
[2017-07-03] MEDS ORDERED: SODIUM POLYSTYRENE SULFONATE 15 G/60 ML BOTTLE NG ONE (04:30)
--- NOTE | 2017-07-03 04:45 | NUR ---
CHUCKER STEPHANIE MOTHER OF PATIENT CALLED AND NOTIFIED ABOUT PATIENT. MOTHER STATES SHE WAS UNAWARE OF CHANGE IN CONDITION. MOTHER WOULD LIKE TO CONTINUE FULL TREATMENT AND WILL VISIT AFTER 8AM. ICU DIRECT NUMBER PROVIDED. WILL CONTINUE TO MONITOR.
[2017-07-03 04:52] LABS: BASOPHILS # (AUTO) 0.1 /CMM (0.0-0.2); BASOPHILS % (AUTO) 0.2 % (0.0-2.0); EOSINOPHILS % (AUTO) 0.1 % (0.0-6.0); HEMATOCRIT 35 % (33-45); HEMOGLOBIN 10.4 g/dL (11.5-14.8); LYMPHOCYTES # (AUTO) 2.1 /CMM (0.8-4.8); LYMPHOCYTES % (AUTO) 5.9 % (20.0-44.0); MEAN CORPUSCULAR HEMOGLOBIN 26 PG (26.0-33.0); MEAN CORPUSCULAR HGB CONC 30 g/dl (31.0-36.0); MEAN CORPUSCULAR VOLUME 86 fL (82-100); MONOCYTES # (AUTO) 0.4 /CMM (0.1-1.30); MONOCYTES % (AUTO) 1.2 % (2.0-12.0); NEUTROPHILS % (AUTO) 92.6 % (43.0-81.0); PLATELET COUNT (AUTO) 552 /CMM (150-450); RED BLOOD CELL COUNT(AUTO) 4.09 MIL/uL (4.0-5.2)
[2017-07-03] MEDS ORDERED: PIPERACILLIN /TAZOBACTAM 2.25 G VIAL IV ONE (04:56)
[2017-07-03] MEDS: PIPERACILLIN /TAZOBACTAM 2.25 G in IV D5W 50 ML IV SCH ×3 (04:57→20:07)
[2017-07-03] MEDS ORDERED: IV NS 0.9% 250 ML IV PRN (05:00)
[2017-07-03 05:12] LABS: ALBUMIN 1.9 g/dL (3.4-5.0); BILIRUBIN,TOTAL 0.5 mg/dL (0.2-1.0); CALCIUM, SERUM 10.8 mg/dL (8.5-10.1); CREATININE 4.4 mg/dL (0.6-1.3); MAGNESIUM 2.9 mg/dL (1.8-2.4); TOTAL PROTEIN, SERUM 6.8 g/dL (6.4-8.2)
[2017-07-03 05:22] LABS: WHITE BLOOD COUNT (AUTO) 35.6 K/uL (4.3-11.0)
[2017-07-03] MEDS ORDERED: NOREPINEPHRINE 4 MG/4 ML AMPUL IV ONE ×2 (05:30→14:57)
[2017-07-03 05:34] LABS: POTASSIUM 6.2 mmol/L (3.5-5.1)
[2017-07-03 05:36] LABS: TROPONIN I 0.958 ng/mL (0.00-0.056)
[2017-07-03] MEDS: NOREPINEPHRINE 16 MG in IV D5W 500 ML IV PRN ×3 (05:40→17:38)
--- NOTE | 2017-07-03 06:30 | NUR ---
INSPECTOR ALIGNING PT REMAINS HYPOTENSIVE. DR KEITH CALLED. ORDERS RECEIVED FOR AN ADDITIONAL PRESSORS. WILL CARRY OUT. CONTINUE TO MONITOR.
[2017-07-03] MEDS ORDERED: PHENYLEPHRINE 10 MG/ML VIAL ONE ×2 (06:44→06:47)
--- NOTE | 2017-07-03 06:45 | NUR ---
WAREHOUSE EXAMINER PT MOVING RIGHT ARM TOWARDS FACE. APPLIED SOFT WRIST RESTRAINT TO RIGHT ARM FOR SAFETY.
[2017-07-03] MEDS: PHENYLEPHRINE 80 MG in IV D5W 250 ML IV PRN ×5 (06:50→23:27)
--- NOTE | 2017-07-03 07:10 | NUR ---
MEDICAID SPECIALIST CLOSING NOTE REPORT ENDORSED TO JOSE C CARRASQUILLO FOR DELVIN. PT REMAINS INTUBATED, ON MULTIPLE PRESSORS TO MAINTAIN BLOOD PRESSURE. PT IS RESTRAINED ON RIGHT ARM FOR SAFETY. SALAZAR INTACT BUT NO DRAINAGE AT THIS TIME.
[2017-07-03] MEDS: FAMOTIDINE/PF INJ 20 MG/2 ML VIAL IV SCH ×2 (08:30→20:07)
[2017-07-03] MEDS ORDERED: FEE PK DOSING 1 MIN EA MC ONE (08:46)
[2017-07-03] MEDS ORDERED: VANCOMYCIN 1 GM in IV D5W 250 ML IV ONE (09:00)
[2017-07-03] MEDS ORDERED: IV D5/0.45 NACL 1,000 ML IV PRN (09:00)
[2017-07-03] MEDS ORDERED: IV NS 0.9% 500 ML IV ONE (09:00)
[2017-07-03] MEDS: NYSTATIN TOP POWDER 15 GM BOTTLE TP SCH ×2 (09:02→16:55)
--- NOTE | 2017-07-03 09:02 | NUR ---
BRUSH MAKER NOTE 07240: Received patient obtunded. No response to pain. Pupils non reactive 5mm. With ETT to vent, no distress noted at this time. With RUE soft wrist restraints, noted with frequent movement on the right hand. A.Fib 100's on the monitor. SBP 70's, will titrate pressors as ordered. On Levo 40, Dopa 30 and Everett 100. RIJ TLC intact. Left tibia IO intact. Byrne cath intact, no UOP noted at this time. 0845: S/E by Dr. Grier, mother at bedside. discussed re: the POC, all questions and concerns were answered. Aware for patient's condition and agreed to continue POC and to will change code status to DNR, mother aware for the DNR status and agreed. MD aware for the Bicarb unable to provide for now, ordered to continue same IVF without Bicarb for now, awaiting for ABG. Made MD aware for LA 20.4, ordered to given 500mL NS bolus now.
[2017-07-03] MEDS: FLUCONAZOLE IN NS 100 MG in PREMIX 1 EA IV SCH ×2 (09:22)
--- NOTE | 2017-07-03 09:58 | NUR ---
COMMERCIAL REAL ESTATE AGENT NOTE S/E by Dr. Correia, spoke with mother at bedside and agreed for HD. Signed consent for HD cath placement and Dr. Correia contacted Dr. Goins for HD cath placement. S/E by Dr. Rivera, biological science technician at bedside, aware for previous echo 50-55% EF, awaiting new echo result.
[2017-07-03] MEDS ORDERED: IV NS 0.9% 1,000 ML IV PRN (09:59)
[2017-07-03] MEDS ORDERED: EPINEPHRINE (1:1000) 1 MG/ML AMPUL SUBCUT ONE (09:59)
[2017-07-03 10:18] LABS: ABG BASE EXCESS -27.9 mmol/L; ABG OXYGEN SATURATION 93.6 % (92.0-98.5); ABG PCO2 34.7 mmHg (35.0-45.0); ABG PH 6.821 (7.350-7.450); ABG PO2 94.4 mmHg (75.0-100.0); AaDO2 223.1 mmHg; COHb 0.3 % (0.5-1.5); O2Hb 92.4 % (94.0-97.0); PEEP,BG 5 cm H2O; SITE, ABG Left Brachial; VENT MODE, BG A/C; VT, ABG 500 mL
[2017-07-03] MEDS: IV LR 1000 ML 1,000 ML IV PRN ×3 (10:25→19:17)
[2017-07-03 10:40] LABS: CALCIUM, SERUM 9.4 mg/dL (8.5-10.1); CREATININE 4.2 mg/dL (0.6-1.3)
[2017-07-03 10:50] LABS: POTASSIUM 6.3 mmol/L (3.5-5.1)
--- NOTE | 2017-07-03 12:27 | NUR ---
SENIOR ENLISTED ADVISOR NOTE Dr. Goins done with HD cath placement. Informed HD nurse Bill for placement done. Patient kept Supine with HOB lowered for SBP still 90's with 3 max dose of pressors. Unable to turn at this time.
[2017-07-03] MEDS ORDERED: NYSTATIN TOP POWDER 15 GM BOTTLE TP SCH (14:30)
[2017-07-03] MEDS ORDERED: CALCIUM CHLORIDE 1,000 MG/10 ML DISP.SYRIN IV ONE (14:57)
[2017-07-03] MEDS ORDERED: EPINEPHRINE (1:10,000) SYRINGE 1 MG/10 ML DISP.SYRIN IVP ONE (14:57)
[2017-07-03] MEDS: CADEXOMER IODINE 40 GM TUBE TP SCH (15:13)
[2017-07-03] MEDS ORDERED: IV NS 0.9% 1,000 ML BAG IV ONE (16:00)
[2017-07-03] MEDS ORDERED: ALBUMIN 25% 25 GM in PREMIX 1 EA IV PRN (16:30)
--- NOTE | 2017-07-03 16:37 | NUR ---
GOAT HERDER NOTE HD ongoing, with Albumin given by HD nurse as ordered. Noted patient with Junctional rhythm 80's, made Dr. Rivera aware. SBP 80's on 3 max dose of pressors.
--- NOTE | 2017-07-03 17:24 | NUR ---
DIRECTOR OF PROGRAM MANAGEMENT NOTE Spoke with Dr. Sung made aware HD ended earlier and did not finish goal for SBP 70's on max doses of 3 pressors. K 6.3 before HD and also latest BS 363. said he willc all EPIC, made him aware Dr. Grier was the PCP in am who did rounds. He will ask for SS order. MD said may do BMP but not know yet what will be plan of care for abnormal result later, said he will discuss POC with the PCP. Mother at bedside, updated re: patient's condition.
[2017-07-03 18:12] LABS: CALCIUM, SERUM 8.5 mg/dL (8.5-10.1); CREATININE 3.7 mg/dL (0.6-1.3)
[2017-07-03 18:15] LABS: POTASSIUM 6.2 mmol/L (3.5-5.1)
[2017-07-03] MEDS ORDERED: IV NS 0.9% 1,000 ML BAG IV PRN (18:30)
--- NOTE | 2017-07-03 18:39 | NUR ---
BUNDLE SORTER NOTE Updated Dr. arellano re: the latest BMP BS 420 and K 6.2, with order to start on aggressive SS.
--- NOTE | 2017-07-03 18:45 | NUR ---
HOTEL ENGINEER NOTE Dr. Grier ordered for Vasopressin for episode of low BP again next time.
[2017-07-03] MEDS: BLOOD SUGAR DIAGNOSTIC 1 EACH STRIP IN SCH ×2 (18:48→23:50)
[2017-07-03] MEDS: INSULIN REGULAR, HUMAN 100 UNIT/ML 3 ML VIAL SQ PRN ×2 (18:49→23:50)
--- NOTE | 2017-07-03 18:51 | NUR ---
EXCEPTIONAL STUDENT EDUCATION AIDE NOTE 20 units RI given for 420 BS, will endorse to next shift to follow up for repeat BS.
[2017-07-03] MEDS: IV NS 0.9% 1,000 ML IV PRN (23:29)
[2017-07-04] VITALS (108 sets, daily range): BP systolic 74–135; BP diastolic 40–98
[2017-07-04] MEDS: NOREPINEPHRINE 16 MG in IV D5W 500 ML IV PRN ×4 (00:02→18:55)
[2017-07-04] MEDS: DOPamine 400 MG in IV D5W 250 ML IV PRN ×9 (02:17→22:48)
[2017-07-04] MEDS: PHENYLEPHRINE 80 MG in IV D5W 250 ML IV PRN ×5 (04:18→21:37)
[2017-07-04] MEDS: PIPERACILLIN /TAZOBACTAM 2.25 G in IV D5W 50 ML IV SCH ×3 (04:19→20:08)
[2017-07-04 05:00] LABS: BASOPHILS # (AUTO) 0.1 /CMM (0.0-0.2); BASOPHILS % (AUTO) 0.5 % (0.0-2.0); HEMATOCRIT 32 % (33-45); HEMOGLOBIN 9.9 g/dL (11.5-14.8); LYMPHOCYTES # (AUTO) 2.3 /CMM (0.8-4.8); LYMPHOCYTES % (AUTO) 9.1 % (20.0-44.0); MEAN CORPUSCULAR HEMOGLOBIN 26 PG (26.0-33.0); MEAN CORPUSCULAR HGB CONC 31 g/dl (31.0-36.0); MEAN CORPUSCULAR VOLUME 84 fL (82-100); MONOCYTES # (AUTO) 0.7 /CMM (0.1-1.30); MONOCYTES % (AUTO) 2.7 % (2.0-12.0); NEUTROPHILS # (AUTO) 22.2 /CMM (1.8-8.9); NEUTROPHILS % (AUTO) 87.7 % (43.0-81.0); PLATELET COUNT (AUTO) 403 /CMM (150-450); RDW COEFFICIENT OF VARIATION 17.9 (11.5-15.0); RED BLOOD CELL COUNT(AUTO) 3.83 MIL/uL (4.0-5.2); WHITE BLOOD COUNT (AUTO) 25.4 K/uL (4.3-11.0)
[2017-07-04 05:09] LABS: APPEARANCE,URINE CLOUDY (CLEAR); BILIRUBIN,URINE NEGATIVE (NEGATIVE); BLOOD, URINE 3+ Ery/uL (NEGATIVE); COLOR,URINE YELLOW (YELLOW); KETONES,URINE NEGATIVE (NEGATIVE); LEUKOCYTE ESTERASE ,URINE 2+ (NEGATIVE); NITRITE, URINE NEGATIVE (NEGATIVE); PROTEIN,URINE 3+ mg/dl (NEGATIVE); UGLUCOSE NEGATIVE (NEGATIVE); UROBILINOGEN,URINE 0.2 EU/dL (0.2)
[2017-07-04 05:19] LABS: BILIRUBIN,TOTAL 0.4 mg/dL (0.2-1.0); CALCIUM, SERUM 8.1 mg/dL (8.5-10.1); CREATININE 3.8 mg/dL (0.6-1.3); MAGNESIUM 2.4 mg/dL (1.8-2.4); TOTAL PROTEIN, SERUM 5.6 g/dL (6.4-8.2)
[2017-07-04] MEDS: BLOOD SUGAR DIAGNOSTIC 1 EACH STRIP IN SCH ×4 (05:19→23:25)
[2017-07-04] MEDS: INSULIN REGULAR, HUMAN 100 UNIT/ML 3 ML VIAL SQ PRN ×4 (05:24→23:26)
[2017-07-04 05:26] LABS: SQUAMOUS EPITHELIAL CELL,UR Few /HPF (None Seen); WBC,URINE 81-100 /HPF (0-3); YEAST,URINE Moderate /HPF (None Seen)
[2017-07-04 05:30] LABS: BACTERIA,URINE Moderate /HPF (None Seen)
[2017-07-04 05:38] LABS: CREATININE, URINE 27.6 MG/DL (30.0-125.0)
[2017-07-04 05:43] LABS: PHOSPHORUS 8.1 mg/dL (2.5-4.9); POTASSIUM 6.3 mmol/L (3.5-5.1)
[2017-07-04 05:48] LABS: BAND % (MANUAL) 6 % (0.0-5.0); LYMPHOCYTES % (MANUAL) 3 % (16-48); MONOCYTES % (MANUAL) 3 % (0-11.0); NEUTROPHILS % (MANUAL) 88 (42-76)
[2017-07-04 05:58] LABS: URINE TOTAL PROTEIN 513.3 mg/dL (0-11.9)
[2017-07-04] MEDS ORDERED: INSULIN DETEMIR 100 UNIT/ML CARTRIDGE SQ SCH (06:00)
[2017-07-04] MEDS ORDERED: DEXTROSE 50%-WATER 50 ML DISP.SYRIN IVP ONE (06:00)
[2017-07-04] MEDS ORDERED: INSULIN REGULAR, HUMAN 100 UNIT/ML 3 ML VIAL IV ONE (06:00)
[2017-07-04] MEDS ORDERED: INSULIN DETEMIR 100 UNIT/ML CARTRIDGE SQ ONE (06:24)
[2017-07-04] MEDS ORDERED: INSULIN REGULAR, HUMAN 100 UNIT/ML 3 ML VIAL ONE (06:26)
[2017-07-04] MEDS: IV NS 0.9% 1,000 ML IV PRN ×2 (06:51→18:15)
--- NOTE | 2017-07-04 07:30 | NUR ---
GUITAR MAKER HAND; ASSESSMENT RECEIVED PT VENTED VIA ETT, SEE FLOW SHEET FOR VENT SETTINGS. PT IS OBTUNDED. NO PUPIL REACTION OR CORNEAL. NOTED SCLERAL EDEMA. PT DOES HAVE A GAG REFLEX, NO PAINFUL STIMULI REACTION. PT ON 3 PRESSORS MAXED DOSE, LEVOPHED 40MCG/MIN, WALTER-SYNEPHRINE 300MCG/MIN, AND DOPAMINE 30MCG/KG/MIN. NOTED ALL FINGER TIPS BLUE IN COLOR WITH MINIMAL CAPILLARY REFILL. PULSES WEAK TO PALPATE. DORSALIS PEDIS NEED TO USE DOPPLER FOR PULSES, RIGHT PULSE WEAK WITH GOOD POPLITEAL PULSE. SALAZAR CATH INTACT DRAINING TO GRAVITY CLOUDY YELLOW URINE, MINIMAL AMOUNT. WILL CONTINUE WITH PLAN OF CARE.
--- NOTE | 2017-07-04 07:52 | NUR ---
PRIMARY CARE MD; CARDIO DR. QUINONES AT BEDSIDE UPDATE WAS GIVEN. DISCUSSED REGARDING PT MAX DOSE LEVELS OF LEVOPHED, DOPAMINE, AND WALTER-SYNEPHRINE. DISCUSSED PT UNABLE TO TOLERATE HD ON 07/03/17, PT BP DROP AND CONVERTED TO A JUNCTIONAL RHYTHM. CURRENTLY PT SINUS RHYTHM WITH BBB. NEW ORDERS ENTER FOR LAB WORK FOR TOMORROW 07/05/17.
[2017-07-04] MEDS: FAMOTIDINE/PF INJ 20 MG/2 ML VIAL IV SCH ×2 (08:28→20:08)
[2017-07-04] MEDS: FLUCONAZOLE IN NS 100 MG in PREMIX 1 EA IV SCH ×2 (08:28)
[2017-07-04] MEDS: NYSTATIN TOP POWDER 15 GM BOTTLE TP SCH ×2 (08:29→17:27)
[2017-07-04] MEDS: CADEXOMER IODINE 40 GM TUBE TP SCH (08:30)
[2017-07-04] MEDS: Z GUARD REMEDY 2 OZ OINT TP PRN (08:31)
[2017-07-04 08:34] LABS: EOSINOPHIL,URINE None Seen
--- NOTE | 2017-07-04 08:50 | NUR ---
WOUND CARE CONSULT: PT NOT TURNED FOR SKIN ASSESSMENT DUE TO NURING STAFF CONCERN ABOUT PT STABILITY (ON 3 PRESSORS). PT ON RHEA ISOFLEX LOW AIRLOSS BED. ALL SKIN PROTECTION MEASURES IN PLACE AND DISCUSSED WITH NURSING STAFF. WILL SEE PT PT CONDITION PERMITS. PT FOLLOWED BY PLASTICS TEAM. DEFER TO PLASTICS TEAM FOR WOUND TREATMENT PLAN. MD IN AGREEMENT WITH PLAN OF CARE.
[2017-07-04] MEDS ORDERED: Sodium Bicarbonate 150 MEQ in IV D5W 1,000 ML IV PRN (10:30)
[2017-07-04] MEDS: VASOPRESSIN INJ 50 UNIT in IV D5W 497.5 ML IV PRN (10:53)
--- NOTE | 2017-07-04 12:45 | NUR ---
LINK TRAINER MAINTENANCE MAN; BLOOD SUGAR PTS BLOOD SUGAR 423. DR. CARMONA NOTIFIED. MADE AWARE OF PT AGGRESSIVE SLIDING SCALE AND PT ALREADY RECEIVING LEVEMIR Q12HRS. NO NEW ORDERS GIVEN.
--- NOTE | 2017-07-04 13:00 | NUR ---
SALES SPECIALIST; HD HD STARTED 1055 VASOPRESSIN STARTED FOR BLOOD PRESSURE SUPPORT DURING HD PT CONVERTED TO SINUS ARRHYTHMIAS WITH JUNCTIONAL BEATS. WILL CONTINUE TO MONITOR CLOSELY.
[2017-07-04] MEDS ORDERED: VANCOMYCIN 1 GM in IV D5W 250 ML IV ONE (15:00)
--- NOTE | 2017-07-04 16:35 | NUR ---
STEEL TURNER; SATURATION UNABLE TO OBTAIN ACCURATE SATURATION READING, DUE TO PTS EXTREMITIES COOL WITH POOR CAPILLARY REFILL. ATTEMPTED DIFFERENT SITES BUT UNABLE TO GET READING. WILL MONITOR FOR ANY CHANGES OF VITAL SIGHS OR S/S OF RESP DISTRESS.
[2017-07-04] MEDS: INSULIN DETEMIR 100 UNIT/ML CARTRIDGE SQ SCH (20:12)
[2017-07-05] VITALS (102 sets, daily range): BP systolic 69–157; BP diastolic 41–78
[2017-07-05] MEDS: DOPamine 400 MG in IV D5W 250 ML IV PRN ×4 (01:30→09:15)
[2017-07-05] MEDS: PHENYLEPHRINE 80 MG in IV D5W 250 ML IV PRN ×5 (01:51→19:27)
[2017-07-05] MEDS: IV NS 0.9% 1,000 ML IV PRN (03:42)
[2017-07-05] MEDS: NOREPINEPHRINE 16 MG in IV D5W 500 ML IV PRN ×3 (04:03→18:55)
[2017-07-05 04:54] LABS: BASOPHILS # (AUTO) 0.3 /CMM (0.0-0.2); BASOPHILS % (AUTO) 1.1 % (0.0-2.0); HEMATOCRIT 31 % (33-45); HEMOGLOBIN 9.8 g/dL (11.5-14.8); LYMPHOCYTES # (AUTO) 1.7 /CMM (0.8-4.8); LYMPHOCYTES % (AUTO) 5.6 % (20.0-44.0); MEAN CORPUSCULAR HEMOGLOBIN 26 PG (26.0-33.0); MEAN CORPUSCULAR HGB CONC 31 g/dl (31.0-36.0); MEAN CORPUSCULAR VOLUME 83 fL (82-100); MONOCYTES # (AUTO) 0.3 /CMM (0.1-1.30); MONOCYTES % (AUTO) 0.8 % (2.0-12.0); NEUTROPHILS # (AUTO) 28.3 /CMM (1.8-8.9); NEUTROPHILS % (AUTO) 92.5 % (43.0-81.0); PLATELET COUNT (AUTO) 217 /CMM (150-450); RDW COEFFICIENT OF VARIATION 18.1 (11.5-15.0); RED BLOOD CELL COUNT(AUTO) 3.77 MIL/uL (4.0-5.2)
[2017-07-05] MEDS: PIPERACILLIN /TAZOBACTAM 2.25 G in IV D5W 50 ML IV SCH ×3 (04:57→20:35)
[2017-07-05 05:27] LABS: WHITE BLOOD COUNT (AUTO) 30.6 K/uL (4.3-11.0)
[2017-07-05 05:33] LABS: BAND % (MANUAL) 24 % (0.0-5.0); LYMPHOCYTES % (MANUAL) 10 % (16-48); MONOCYTES % (MANUAL) 3 % (0-11.0); NEUTROPHILS % (MANUAL) 63 (42-76)
[2017-07-05 05:50] LABS: ALBUMIN 1.5 g/dL (3.4-5.0); BILIRUBIN,TOTAL 0.4 mg/dL (0.2-1.0); CALCIUM, SERUM 6.8 mg/dL (8.5-10.1); MAGNESIUM 1.9 mg/dL (1.8-2.4); PHOSPHORUS 5.7 mg/dL (2.5-4.9); POTASSIUM 5.3 mmol/L (3.5-5.1); TOTAL PROTEIN, SERUM 4.8 g/dL (6.4-8.2)
--- NOTE | 2017-07-05 06:30 | NUR ---
DR KEITH NOTIFIED OF CRITICAL SODIUM 112, HE ORDERED 3% NACL @ 40 ML/HR FOR 6 HOURS, THEN REASSESS SODIUM. DURING TIME 3% NACL IS RUNNING DR KEITH WANTS TO STOP NS @ 125 ML/HR, AND RESTART NS @ 125 ML/HR AFTER 3% NACL FINISHED
--- NOTE | 2017-07-05 06:45 | NUR ---
HD STARTED @ 0645, BP WNL, ON 3 PRESSORS LEVO 30, WALTER 300 AND DOPAMINE 30
[2017-07-05] MEDS: INSULIN REGULAR, HUMAN 100 UNIT/ML 3 ML VIAL SQ PRN ×2 (06:48→11:54)
[2017-07-05] MEDS: BLOOD SUGAR DIAGNOSTIC 1 EACH STRIP IN SCH ×3 (06:48→18:40)
[2017-07-05] MEDS ORDERED: IV Sodium Chloride 3% 500 ML 500 ML IV ONE (07:30)
--- NOTE | 2017-07-05 07:45 | NUR ---
SEED LABORATORY ASSISTANT; ASSESSMENT RECEIVED PT VENTED VIA ETT, SEE FLOW SHEET FOR VENT SETTINGS. PT UNRESPONSIVE. PT IS POSITIVE FOR GAG REFLEX AND SLUGGISH PUPIL REACTION. PT DOES NOT REACT TO PAINFUL STIMULI. NOTED PT BECOMING MOTTLED. ALL EXTREMITIES COOL TO TOUCH PURPLE IN COLOR. UNABLE TO OBTAIN DOPPLER PULSES TO DORSALIS PEDIS, ABLE TO OBTAIN POPLITEAL PULSES VIA DOPPLER, CHE RADIAL PULSES WEAK TO PALPATE. PT ON 3 PRESSOR, MAX DOSE OF LEVOPHED 30MCG/MIN, WALTER 300MCG/MIN, DOPAMINE AT 30MCG/KG/MIN. PT CURRENTLY RECEIVING HD. PT CONTINUES TO HAVE SINUS ARRHYTHMIAS. SALAZAR CATH INTACT DRAINING MINIMAL AMOUNT OF CLOUDY YELLOW URINE. NO ACUTE DISTRESS NOTED WILL CONTINUE TO MONITOR.
--- NOTE | 2017-07-05 07:45 | NUR ---
WOUND CARE: PT ON DIALYSIS AT THIS TIME. WILL SEE PT FOR SKIN ASSESSMENT PT CONDITION PERMITS. CONTINUE ALL SKIN PROTECTION MEASURES. DISCUSSED WITH NURSING STAFF. PT FOLLOWED BY PLASTICS/PODIATRY TEAM. DEFER TO SURGICAL TEAM FOR WOUND TREATMENT PLAN.
--- NOTE | 2017-07-05 08:00 | NUR ---
PHOTOGRAMMETRIST; BP PT CURRENT BP 127/ 66. DR. QUINONES AT BEDSIDE DISCUSSED REGARDING WHAT PRESSOR TO START TO TITRATE DOWN. ORDERS TO START TO TITRATE DOPAMINE OFF
[2017-07-05 08:13] LABS: *SPE A/G RATIO 0.9 (0.7-1.7); *SPE ALBUMIN 2.4 g/dL (2.9-4.4); *SPE ALPHA-1-GLOBULIN 0.3 g/dL (0.0-0.4); *SPE BETA GLOBULIN 0.6 g/dL (0.7-1.3); *SPE GLOBULIN, TOTAL 2.8 g/dL (2.2-3.9); *SPE M-SPIKE Not Observed g/dL (Not Observed); *SPE PROTEIN TOTAL 5.2 g/dL (6.0-8.5)
[2017-07-05] MEDS: FAMOTIDINE/PF INJ 20 MG/2 ML VIAL IV SCH ×2 (08:55→20:35)
[2017-07-05] MEDS: HYDROCORTISONE SOD SUCCINATE 100 MG/2 ML VIAL IV SCH ×3 (08:55→18:40)
[2017-07-05] MEDS: FLUCONAZOLE IN NS 100 MG in PREMIX 1 EA IV SCH ×2 (08:55)
[2017-07-05] MEDS: INSULIN DETEMIR 100 UNIT/ML CARTRIDGE SQ SCH ×2 (08:57→20:31)
[2017-07-05] MEDS: CADEXOMER IODINE 40 GM TUBE TP SCH (08:58)
[2017-07-05] MEDS: NYSTATIN TOP POWDER 15 GM BOTTLE TP SCH ×2 (08:59→18:57)
[2017-07-05] MEDS ORDERED: HYDROGEL DRESSING 90 GM TUBE TP PRN (09:00)
[2017-07-05] MEDS: HYDROGEL DRESSING 90 GM TUBE TP SCH (10:15)
[2017-07-05] MEDS ORDERED: DOPamine 800 MG in IV D5W 250 ML IV PRN (11:00)
[2017-07-05 11:19] LABS: ABG OXYGEN SATURATION 94.1 % (92.0-98.5); ABG PH 7.151 (7.350-7.450); ABG PO2 75.9 mmHg (75.0-100.0); AaDO2 253.6 mmHg; COHb 0.3 % (0.5-1.5); MetHb 0.7 % (0.0-1.5); O2Hb 93.2 % (94.0-97.0); SITE, ABG Right Radial; VT, ABG 600 mL
[2017-07-05 13:13] LABS: PTH, INTACT 243 pg/mL (15-65)
[2017-07-05] MEDS: VANCOMYCIN 500 MG in IV D5W 100 ML IV PRN (13:23)
--- NOTE | 2017-07-05 15:00 | NUR ---
SHAFT HEADMAN; HEART RATE PT HAD AN EPISODE OF WHAT APPEARS RAPID AFIB. PT CURRENTLY LEVO 30MCG/MIN, WALTER 300 MCG AND DOPAMINE AT 18MCG. DR GLEZ AT BEDSIDE ORDERS TO RE-START VASOPRESSIN AND TITRATE DOPAMINE OFF. Addendum: 07/05/17 at 1510 by EDWARD LEHMAN RN PT RAPID AFIB LASTED FOR ABOUT 5MIN. PT NOW BACK TO AFIB, BUT AT A SLOWER RATE 199 BPM. VASOPRESSIN STARTED ORDERED IN SHOCK DOSE. WILL TITRATE DOPAMINE OFF.
[2017-07-05] MEDS: VASOPRESSIN INJ 50 UNIT in IV D5W 497.5 ML IV PRN (15:04)
[2017-07-05] MEDS: CITRIC ACID/SODIUM CITRATE (BICITRA)15 ML UDC NG SCH ×2 (15:11→21:58)
[2017-07-05 16:38] LABS: CALCIUM, SERUM 6.5 mg/dL (8.5-10.1); CREATININE 2.6 mg/dL (0.6-1.3); POTASSIUM 4.8 mmol/L (3.5-5.1)
[2017-07-05] MEDS ORDERED: IV NS 0.9% 1,000 ML BAG IV PRN (18:00)
[2017-07-05] MEDS ORDERED: IV NS 0.9% 1,000 ML IV PRN ×2 (18:30)
[2017-07-05] MEDS: MICAFUNGIN SODIUM 100 MG in IV NS 0.9% 100 ML IV SCH (19:18)
--- NOTE | 2017-07-05 20:00 | NUR ---
IPHONE DEVELOPER - RECEIVED PT VENTED VIA ETT, SEE FLOW SHEET FOR VENT SETTINGS. PT IS OBTUNDED. PUPILS SLUGGISH 2 MM. NOTED SCLERAL EDEMA. PT DOES HAVE A GAG REFLEX, NO PAINFUL STIMULI REACTION. PT ON 3 PRESSORS MAXED DOSE, LEVOPHED 40MCG/MIN, WALTER-SYNEPHRINE 300MCG/MIN, AND VASOPRESSIN 0.04 UNITS/MIN. NOTED ALL FINGER TIPS BLUE IN COLOR WITH MINIMAL CAPILLARY REFILL. PULSES WEAK TO PALPATE. DORSALIS PEDIS NEED TO USE DOPPLER FOR RIGHT FOOT PULSE, UNABLE TO DOPPLER LEFT FOOT PULSE WEAK LEFT POPLITEAL PULSE. SALAZAR CATH INTACT DRAINING TO GRAVITY CLOUDY YELLOW URINE, MINIMAL AMOUNT. WILL CONTINUE WITH PLAN OF CARE.
--- NOTE | 2017-07-05 20:41 | NUR ---
PT RECEIVED INTUBATED WITH 7.0 ETT SECURED AT 23CM AT THE LIP. NO RESP DISTRESS. PT TOLERATING VENT SETTINGS. VENT ALARMS SET AND AUDIBLE. AMBU BAG AT [facility]. VENT PLUGGED INTO RED OUTLET. WILL CONTINUE TO MONITOR. Addendum: 07/05/17 at 2042 by KENIA DUNCAN RT Amended: Links added.
[2017-07-06] VITALS (104 sets, daily range): BP systolic 68–157; BP diastolic 39–97
[2017-07-06] MEDS: BLOOD SUGAR DIAGNOSTIC 1 EACH STRIP IN SCH ×4 (00:16→17:18)
[2017-07-06] MEDS: DEXTROSE 50%-WATER 50 ML DISP.SYRIN IV PRN ×2 (00:17→20:37)
[2017-07-06] MEDS ORDERED: IV D5/ 0.9% NACL 1,000 ML IV PRN (01:00)
[2017-07-06] MEDS: PHENYLEPHRINE 80 MG in IV D5W 250 ML IV PRN ×2 (04:40→10:49)
[2017-07-06] MEDS: PIPERACILLIN /TAZOBACTAM 2.25 G in IV D5W 50 ML IV SCH ×3 (04:40→20:48)
[2017-07-06] MEDS: INSULIN REGULAR, HUMAN 100 UNIT/ML 3 ML VIAL SQ PRN ×2 (05:04→12:24)
[2017-07-06 05:11] LABS: CALCIUM, SERUM 6.2 mg/dL (8.5-10.1); CREATININE 2.5 mg/dL (0.6-1.3); POTASSIUM 4.9 mmol/L (3.5-5.1)
[2017-07-06] MEDS ORDERED: IV NS 0.9% 1,000 ML IV PRN (06:00)
[2017-07-06] MEDS ORDERED: IV Sodium Chloride 3% 500 ML 500 ML IV ONE ×2 (06:00→06:04)
--- NOTE | 2017-07-06 06:05 | NUR ---
DR AN NOTIFIED OF SODIUM 116, ORDERED 3% NACL @ 40 ML/HR FOR 6 HOURS THEN REASSESS SODIUM
[2017-07-06] MEDS: CITRIC ACID/SODIUM CITRATE (BICITRA)15 ML UDC NG SCH ×3 (06:14→22:14)
[2017-07-06] MEDS: NOREPINEPHRINE 16 MG in IV D5W 500 ML IV PRN ×3 (07:41→22:15)
--- NOTE | 2017-07-06 07:45 | NUR ---
ICU/RN - Initial Notes Received pt obtunded with eyes open, pupils sluggish 3mm. Orally intubated to mechanical vent with settings as ordered. On tele reading AFib 110's. Generalized edema and weeping noted. Right nare NGT clamped, pt kept NPO as ordered. Byrne catheter intact, draining minimal urine. RIJ TLC patent and intact, with IVF infusing well, currently on 3 pressors - Levo, Everett, and Vaso. HD catheter noted on left chest wall. Pt suctioned. Safety and comfort measures in place. Will continue to monitor pt closely.
[2017-07-06] MEDS: HYDROCORTISONE SOD SUCCINATE 100 MG/2 ML VIAL IV SCH ×3 (08:04→16:04)
[2017-07-06] MEDS: HYDROGEL DRESSING 90 GM TUBE TP SCH (08:04)
[2017-07-06] MEDS: VASOPRESSIN INJ 50 UNIT in IV D5W 497.5 ML IV PRN (08:04)
[2017-07-06] MEDS: FAMOTIDINE/PF INJ 20 MG/2 ML VIAL IV SCH ×2 (08:04→20:50)
[2017-07-06] MEDS: CADEXOMER IODINE 40 GM TUBE TP SCH (08:05)
[2017-07-06] MEDS: NYSTATIN TOP POWDER 15 GM BOTTLE TP SCH ×2 (08:05→16:03)
[2017-07-06] MEDS: INSULIN DETEMIR 100 UNIT/ML CARTRIDGE SQ SCH ×2 (08:10→20:48)
--- NOTE | 2017-07-06 09:00 | NUR ---
ICU/RN - Notes Vasopressin titrated down per order as pt's BP optimal. Will continue to monitor.
[2017-07-06 09:12] LABS: ABG BASE EXCESS -17.4 mmol/L; ABG OXYGEN SATURATION 96.9 % (92.0-98.5); ABG PCO2 24.4 mmHg (35.0-45.0); ABG PH 7.191 (7.350-7.450); ABG PO2 101.9 mmHg (75.0-100.0); AaDO2 227.2 mmHg; COHb 0.3 % (0.5-1.5); MetHb 0.6 % (0.0-1.5); PEEP,BG 0 cm H2O; SITE, ABG Right Radial; VT, ABG 600 mL
--- NOTE | 2017-07-06 11:45 | NUR ---
ICU/RN - Notes Pt's mother Mari at bedside, updated on plan of care.
--- NOTE | 2017-07-06 12:15 | NUR ---
ICU/RN - Notes Unable to reassess sodium at this time (BMP draw), pt currently undergoing hemodialysis and will result inaccurate. Notified lab, will draw upon finish of hemodialysis.
[2017-07-06] MEDS: IV NS 0.9% 1,000 ML IV PRN ×2 (12:33→22:59)
--- NOTE | 2017-07-06 13:20 | NUR ---
ICU/RN - Notes Hemodialysis completed with, no output. BP supported with pressors - Levo and Everett - through HD session. During HD session, pt HR AFiB up to 130's.
[2017-07-06] MEDS: VANCOMYCIN 500 MG in IV D5W 100 ML IV PRN (13:25)
--- NOTE | 2017-07-06 14:15 | NUR ---
ICU/RN - Notes Lab called to draw BMP now as pt finished with hemodialysis.
[2017-07-06 14:51] LABS: CALCIUM, SERUM 6.5 mg/dL (8.5-10.1); POTASSIUM 3.8 mmol/L (3.5-5.1)
--- NOTE | 2017-07-06 15:45 | NUR ---
ICU/RN - Notes Smear bowel movement noted. Pt given bed bath, repositioned for comfort.
[2017-07-06] MEDS: MICAFUNGIN SODIUM 100 MG in IV NS 0.9% 100 ML IV SCH (17:00)
--- NOTE | 2017-07-06 20:00 | NUR ---
HOSPITAL CNA - RECEIVED PT VENTED VIA ETT, SEE FLOW SHEET FOR VENT SETTINGS. PT IS OBTUNDED. PUPILS SLUGGISH 2 MM. NOTED SCLERAL EDEMA. PT DOES HAVE A GAG REFLEX, NO PAINFUL STIMULI REACTION. PT ON LEVOPHED 30MCG/MIN. NOTED ALL FINGER TIPS BLUE IN COLOR WITH MINIMAL CAPILLARY REFILL. PULSES WEAK TO PALPATE. DORSALIS PEDIS PULSES ABSENT, WEAK LEFT AND RIGHT POPLITEAL PULSES. SALAZAR CATH INTACT DRAINING TO GRAVITY CLOUDY YELLOW URINE, MINIMAL AMOUNT. WILL CONTINUE WITH PLAN OF CARE.
--- NOTE | 2017-07-06 20:27 | NUR ---
PT RECEIVED INTUBATED WITH 7.0 ETT SECURED AT 23CM AT THE LIP. NO RESP DISTRESS. PT TOLERATING VENT SETTINGS. VENT ALARMS SET AND AUDIBLE. AMBU BAG AT [facility]. VENT PLUGGED INTO RED OUTLET. WILL CONTINUE TO MONITOR. Addendum: 07/06/17 at 2026 by KENIA DUNCAN RT Amended: Links added.
[2017-07-07] VITALS (106 sets, daily range): BP systolic 76–140; BP diastolic 40–87
--- NOTE | 2017-07-07 | NUR ---
PT STABLE, NO CHANGES, WILL CONTINUE TO MONITOR
[2017-07-07] MEDS: BLOOD SUGAR DIAGNOSTIC 1 EACH STRIP IN SCH ×5 (00:26→23:05)
--- NOTE | 2017-07-07 04:00 | NUR ---
FULL BED BATH GIVEN, VSS
[2017-07-07 04:50] LABS: HEMATOCRIT 25 % (33-45); LYMPHOCYTES # (AUTO) 0.5 /CMM (0.8-4.8); LYMPHOCYTES % (AUTO) 1.8 % (20.0-44.0); MEAN CORPUSCULAR HEMOGLOBIN 26 PG (26.0-33.0); MEAN CORPUSCULAR HGB CONC 32 g/dl (31.0-36.0); MEAN CORPUSCULAR VOLUME 80 fL (82-100); MONOCYTES # (AUTO) 0.5 /CMM (0.1-1.30); MONOCYTES % (AUTO) 2.1 % (2.0-12.0); NEUTROPHILS # (AUTO) 24.4 /CMM (1.8-8.9); NEUTROPHILS % (AUTO) 96.1 % (43.0-81.0); PLATELET COUNT (AUTO) 83 /CMM (150-450); RDW COEFFICIENT OF VARIATION 17.8 (11.5-15.0); RED BLOOD CELL COUNT(AUTO) 3.12 MIL/uL (4.0-5.2); WHITE BLOOD COUNT (AUTO) 25.4 K/uL (4.3-11.0)
[2017-07-07 05:03] LABS: CALCIUM, SERUM 6.5 mg/dL (8.5-10.1); CREATININE 2.2 mg/dL (0.6-1.3); MAGNESIUM 1.7 mg/dL (1.8-2.4); PHOSPHORUS 3.1 mg/dL (2.5-4.9); POTASSIUM 4.3 mmol/L (3.5-5.1)
[2017-07-07 05:27] LABS: NEUTROPHILS % (MANUAL) 85 (42-76)
[2017-07-07 05:28] LABS: BAND % (MANUAL) 9 % (0.0-5.0); LYMPHOCYTES % (MANUAL) 3 % (16-48); MONOCYTES % (MANUAL) 3 % (0-11.0)
[2017-07-07] MEDS: PIPERACILLIN /TAZOBACTAM 2.25 G in IV D5W 50 ML IV SCH ×3 (05:56→21:36)
[2017-07-07] MEDS: DEXTROSE 50%-WATER 50 ML DISP.SYRIN IV PRN ×2 (06:04→14:26)
[2017-07-07] MEDS: CITRIC ACID/SODIUM CITRATE (BICITRA)15 ML UDC NG SCH ×3 (06:15→21:36)
[2017-07-07] MEDS ORDERED: Magnesium 1GM/D5W 100ML PREMIX 100 ML IV ONE (06:40)
[2017-07-07] MEDS: Magnesium 1GM/D5W 100ML PREMIX 100 ML IV SCH ×2 (06:41→08:01)
--- NOTE | 2017-07-07 07:45 | NUR ---
ICU/RN - Initial Notes Received pt obtunded with eyes open, pupils sluggish 3mm. Orally intubated to mechanical vent with settings as ordered. On tele reading AFib 110's. Generalized edema and weeping noted. Right nare NGT clamped, pt kept NPO as ordered. Byrne catheter intact, draining minimal urine. RIJ TLC patent and intact, with IVF infusing well, currently on Levophed, titrated accordingly. HD catheter noted on left chest wall. Pt suctioned. Safety and comfort measures in place. Will continue to monitor pt closely.
[2017-07-07] MEDS: INSULIN DETEMIR 100 UNIT/ML CARTRIDGE SQ SCH (08:01)
[2017-07-07] MEDS: HYDROGEL DRESSING 90 GM TUBE TP SCH (08:18)
[2017-07-07] MEDS: FAMOTIDINE/PF INJ 20 MG/2 ML VIAL IV SCH ×2 (08:18→21:35)
[2017-07-07] MEDS: HYDROCORTISONE SOD SUCCINATE 100 MG/2 ML VIAL IV SCH ×3 (08:18→16:24)
[2017-07-07] MEDS: Z GUARD REMEDY 2 OZ OINT TP PRN (08:18)
[2017-07-07] MEDS: NYSTATIN TOP POWDER 15 GM BOTTLE TP SCH ×2 (08:19→16:23)
[2017-07-07] MEDS: CADEXOMER IODINE 40 GM TUBE TP SCH (08:19)
[2017-07-07] MEDS ORDERED: IV NS 0.9% 250 ML IV PRN (09:30)
--- NOTE | 2017-07-07 11:35 | NUR ---
ICU/RN - Notes Pt's mother Valentina at bedside. Updates given.
--- NOTE | 2017-07-07 14:35 | NUR ---
ICU/RN - Notes Blood sugar taken and noted to be 47. Dextrose [address] IVP given as ordered. Dr Grier notified and made aware of pt's continued episodes of hypoglycemia. New orders received to start D5W @ 75mL/hr. Will carry out.
[2017-07-07] MEDS: IV D5W 1,000 ML IV PRN (14:45)
[2017-07-07] MEDS: NOREPINEPHRINE 16 MG in IV D5W 500 ML IV PRN (14:53)
--- NOTE | 2017-07-07 15:50 | NUR ---
ICU/RN - Notes Bed bath given. Oral care rendered. Pt repositioned and suctioned.
--- NOTE | 2017-07-07 17:00 | NUR ---
ICU/RN - Notes Per Dr Lemus, pt will have Hemodialysis tomorrow, not today.
[2017-07-07] MEDS: MICAFUNGIN SODIUM 100 MG in IV NS 0.9% 100 ML IV SCH (17:08)
--- NOTE | 2017-07-07 20:27 | NUR ---
received pt from day shift, obtunded, responds to pain stimuli only, Afib, PVCs, BBB, SR, on levo at 8mcg, on the vent, lung congested, non pitting/pitting/weeping edema, purple discoloration over upper and lower extremities, NG clamped, f/c very low output, mostly anuric, multiple wounds, v/s stable, no pain, pt turned and repositioned.
[2017-07-08] VITALS (99 sets, daily range): BP systolic 19–143; BP diastolic 32–96
--- NOTE | 2017-07-08 00:21 | NUR ---
pt is resting in the bed, on levo at 7mcg, v/s stable, no pain, pt turned and repositioned q2hrs.
[2017-07-08] MEDS: PIPERACILLIN /TAZOBACTAM 2.25 G in IV D5W 50 ML IV SCH ×3 (04:22→20:34)
--- NOTE | 2017-07-08 04:37 | NUR ---
pt is resting in the bed, obtunded, receiving levo at 5mcg, v/s stable, no pain, pt cleaned, changed and repositioned q2hrs.
[2017-07-08] MEDS: IV D5W 1,000 ML IV PRN ×2 (04:46→17:54)
[2017-07-08 04:47] LABS: BASOPHILS % (AUTO) 0.1 % (0.0-2.0); HEMATOCRIT 24 % (33-45); HEMOGLOBIN 7.7 g/dL (11.5-14.8); LYMPHOCYTES # (AUTO) 0.9 /CMM (0.8-4.8); LYMPHOCYTES % (AUTO) 3.7 % (20.0-44.0); MEAN CORPUSCULAR HEMOGLOBIN 26 PG (26.0-33.0); MEAN CORPUSCULAR HGB CONC 33 g/dl (31.0-36.0); MEAN CORPUSCULAR VOLUME 80 fL (82-100); MONOCYTES # (AUTO) 0.5 /CMM (0.1-1.30); MONOCYTES % (AUTO) 2.2 % (2.0-12.0); NEUTROPHILS # (AUTO) 21.6 /CMM (1.8-8.9); PLATELET COUNT (AUTO) 88 /CMM (150-450); RDW COEFFICIENT OF VARIATION 17.9 (11.5-15.0)
[2017-07-08 05:06] LABS: CALCIUM, SERUM 6.7 mg/dL (8.5-10.1); CREATININE 2.5 mg/dL (0.6-1.3); POTASSIUM 4.9 mmol/L (3.5-5.1)
[2017-07-08 05:31] LABS: BAND % (MANUAL) 5 % (0.0-5.0); LYMPHOCYTES % (MANUAL) 5 % (16-48); MONOCYTES % (MANUAL) 3 % (0-11.0); NEUTROPHILS % (MANUAL) 87 (42-76)
[2017-07-08] MEDS: BLOOD SUGAR DIAGNOSTIC 1 EACH STRIP IN SCH ×4 (05:37→23:45)
[2017-07-08] MEDS: CITRIC ACID/SODIUM CITRATE (BICITRA)15 ML UDC NG SCH ×3 (05:37→22:40)
--- NOTE | 2017-07-08 07:00 | NUR ---
initial icu note received pt in bed, responds to pain stimuli, responds to name, unable to follow commands, pt is on mech vent ett 7.0 @ 22 lipline ac 24 tv 600 fio2 50%, peep 0, sating well, no s/s of resp.distress or sob noted at this time, pt is on bedside monitor showing sr w/ bbb @ 80's, no s/s of chest pain or discomfort at this time, pt has right ngt, clamped at this time, pt has f/c, no output at this time, aware, pt has multiple skin issues, all treatments ack, carried out, pt has l chest hd, dressing c/d/i/patent, rij tlc,c/d/i/patent, flushing well, no s/s of infection/ infiltration noted at this time, running d5w @ 75ml/hr, levo @ 5mcg/min, pt is currently receiving hd at this time, all safety measures in place at all times, call light within easy reach, will monitor pt closely for changes
--- NOTE | 2017-07-08 07:59 | NUR ---
WOUND CARE CONSULT PATIENT SEEN FOR LIMITED ASSESSMENT OF NEW EDEMA 3+ WEEPING TO THE BILATERAL UPPER THIGHS BOTH INNER AND OUTER INCLUDING BLISTERING OF THE SKIN TO THE INNER AND OUTER THIGH REGIONS INCLUDING BOTH HIPS. THERE ARE BOTH CLOSED AND OPEN BLISTERS NOTED WITH SEROUS DRNG. ALL EXTREMITIES ARE PURPLE IN COLOR AND EDEMA AND SWELLING. PATIENT IS CURRENTLY RECEIVING HD AT BEDSIDE. ALL RECOMMENDATIONS DISCUSSED WITH MD AND MD IN AGREEMENT. ALL SKIN MANAGEMENT DISCUSSED WITH NURSING AT THE BEDSIDE. PATIENT WITH SKIN FAILURE DUE TO MULTIPLE CO-MORBIDITIES, FURTHER SKIN BREAKDOWN IS EMINENT/ UNAVOIDABLE AT THIS TIME. PATIENT REMAINS ON PRESSOR SUPPORT, ALL SKIN MANAGEMENT AND PRESSURE ULCER PREVENTION MEASURES CONTINUE TO BE IN PLACE. Addendum: 07/08/17 at 0805 by SHMUEL SYEKS WNDNU Amended: Links added.
--- NOTE | 2017-07-08 08:00 | NUR ---
icu note wound care nurse at bedside, assessing pt, all new orders ack and will be carried out.
[2017-07-08] MEDS: FAMOTIDINE/PF INJ 20 MG/2 ML VIAL IV SCH ×2 (09:07→20:34)
[2017-07-08] MEDS: HYDROCORTISONE SOD SUCCINATE 100 MG/2 ML VIAL IV SCH ×3 (09:07→17:54)
[2017-07-08] MEDS: CADEXOMER IODINE 40 GM TUBE TP SCH (09:08)
[2017-07-08] MEDS: HYDROGEL DRESSING 90 GM TUBE TP SCH (09:08)
[2017-07-08] MEDS: NYSTATIN TOP POWDER 15 GM BOTTLE TP SCH ×2 (09:08→17:55)
[2017-07-08] MEDS: Z GUARD REMEDY 2 OZ OINT TP PRN (09:08)
--- NOTE | 2017-07-08 09:30 | NUR ---
ICU NOTE HD COMPLETED, 2L OF FLUIDS REMOVED, PT TOLERATED WELL
--- NOTE | 2017-07-08 11:53 | NUR ---
icu note received phone call from hanny mackay(mother of pt), informing me that she will call tuesday07/09/17 to withdrawl full treatment and put pt on comfort measures
--- NOTE | 2017-07-08 12:30 | NUR ---
ICU NOTE DR. CARMONA, MADE ROUNDS, AWARE OF ALL LABS AND RESULTS, ALL NEW ORDERS ACK
[2017-07-08] MEDS: VANCOMYCIN 500 MG in IV D5W 100 ML IV PRN (13:14)
--- NOTE | 2017-07-08 16:00 | NUR ---
ICU NOTE PM CARE GIVEN, ALL WOUND TREATMENTS PROVIDED, PT KEPT CLEAN AND DRY, ALL SAFETY MEASURES IN PLACE AT ALL TIMES, WILL MONITOR CLOSELY
--- NOTE | 2017-07-08 17:30 | NUR ---
icu note family at bedside, updated, all questions and concerns answered
[2017-07-08] MEDS: NOREPINEPHRINE 16 MG in IV D5W 500 ML IV PRN (17:55)
[2017-07-08] MEDS: MICAFUNGIN SODIUM 100 MG in IV NS 0.9% 100 ML IV SCH (17:56)
--- NOTE | 2017-07-08 18:57 | NUR ---
icu note report given to javy for alicia
--- NOTE | 2017-07-08 20:57 | NUR ---
OUTREACH PROFESSIONAL; RECEIVED PT FROM KATHERINE/RN, PT IS INTUBATED, NO SEDATED, OPEN AND TRACK EYES, NODDING HEAD WHEN ASK "ARE YOU OK". ON PRESSOR LEVOPHED INFUSING AT 2 MCG/MIN. NO DISTRESS. CURRENT VENT SETTING TOLERATING WELL. ALL NEEDS ATTENDED. REPOSITIONED FOR COMFORT. IV FLUID ONGOING, TRIPLE LUMEN RIGHT I J INTACT AND DRESSING CLEAN., LEFT CHEST WALL HD CATHETER INTACT. FULL ASSESSMENT SEE ON FLOW SHEET. KEEP MONITORING...
--- NOTE | 2017-07-08 22:37 | NUR ---
SECURITY CONSULTANT; PT REPORT ENDORSED TO JANIS/YAHAIRA. MADE AWARE ALL ORDERS.
--- NOTE | 2017-07-08 22:40 | NUR ---
ICU/EMPLOYEE BENEFITS COORDINATOR RECEIVED REPORT FROM AURA NURSE KAMLESH. PT IS ALERT TO VOICE AND SIMPLE COMMANDS. PT IS ORALLY INTUBATED, TOLERATING CURRENT SETTINGS, SATURATION IS 100%. PT IS CURRENTLY NPO, RIGHT NGT CLAMPED. PT HAD HD TODAY WITH 2 LITERS OFF. PT HAS A FEW SKIN ISSUES THAT ARE ADDRESSED IN FLOW SHEET. RIGHT UPPER MIDLINE WITH D5W@75CC/HR AND LEVO 4 MCG FOR BP TO KEEP ABOVE 90 SBP. PT WAS TURNED AND REPOSITION FOR COMFORT AND CARE.
[2017-07-09] VITALS (76 sets, daily range): BP systolic 31–147; BP diastolic 17–74
--- NOTE | 2017-07-09 00:07 | NUR ---
ICU/DESIGN ENGINEERING INTERN BLOOD SUGAR WAS DONE IT WAS 106, THERE IS NO COVERAGE FOR THIS. WILL CONTINUE TO MONITOR THIS PER MD ORDERS.
--- NOTE | 2017-07-09 01:20 | NUR ---
ICU/EARLY CHILDHOOD EDUCATION SPECIALIST PT WAS GIVEN AM CARE, PT WAS GIVEN ORAL CARE AT THIS TIME. REPLACED DRESSING TO THIGHS AND LEGS. PT HAS EXTENSIVE LIQUID STOOL WHICH APPEARS TO BE BURNING THE LEG WOUNDS. PT WAS TURNED AND REPOSITIONED FOR COMFORT AND CARE. WILL CONTINUE TO MONITOR THIS PT.
--- NOTE | 2017-07-09 03:05 | NUR ---
ICU/TOWER WATCHMAN NOTIFIED CHARGE NURSE THAT PT'S BLOOD PRESSURE WAS IN THE 140'S, LEVO WAS DECREASED TO 2MCG BY CHARGE NURSE. WILL MONITOR PT'S BLOOD PRESSURE.
--- NOTE | 2017-07-09 03:55 | NUR ---
ICU/FOOD AND BEVERAGE SERVICE MANAGER PT WAS TURNED AND REPOSITIONED FOR COMFORT AND CARE, HOWEVER PT ONCE AGAIN HAS EXTENSIVE LIQUID STOOL. NOTIFIED CHARGE NURSE ABOUT THE AMOUNT OF STOOL, ANODISER MD WAS NOTIFIED ORDER WAS RECEIVED FOR FLEX-SEAL, THEN WAS PLACED. AGAIN DRESSING WERE CHANGED DUE TO SOILING FROM BM. WILL CONTINUE TO MONITOR THIS PT.
[2017-07-09] MEDS: PIPERACILLIN /TAZOBACTAM 2.25 G in IV D5W 50 ML IV SCH ×3 (04:31→21:00)
[2017-07-09 05:04] LABS: CALCIUM, SERUM 7.2 mg/dL (8.5-10.1); CREATININE 2.2 mg/dL (0.6-1.3); POTASSIUM 3.7 mmol/L (3.5-5.1)
[2017-07-09] MEDS: BLOOD SUGAR DIAGNOSTIC 1 EACH STRIP IN SCH ×3 (06:10→17:57)
[2017-07-09] MEDS: CITRIC ACID/SODIUM CITRATE (BICITRA)15 ML UDC NG SCH ×2 (06:24→14:50)
--- NOTE | 2017-07-09 07:05 | NUR ---
icu initial note received pt, responsive to deep pain, unable to follow commands, looks when name is called,pt is intubated, ett 7.0 @ 22cm lipline, ac 24 tv 600 fio2 50% peep 0, sating well, no s/s of resp.distress or sob noted at this time, pt is on bedside monitor show controlled sr w/bbb @ 80's bpm, no s/s of chest pain or discomfort at this time, pt has right ngt,clamped at this time, flushing well, pt has rij tlc, running levo @ 2mcg/min, c/d/i/patent,flushing well, brynn midline, running d5w @75ml/hr, l chest wall hd cath, dressing intact/clean/dry,no s/s of infection/ infiltration noted at this time, f/c draining very minimal urine, md aware, pt has flexiseal, draining loose green stool, all safety measures in place at all times, call light within easy reach, will monitor pt closely for changes
--- NOTE | 2017-07-09 07:05 | NUR ---
icu initial note received pt, responsive to deep pain, unable to follow commands, obtunded,pt is intubated, ett 7.5 @ 23cm lipline, ac 22 tv 550 fio2 45% peep 0, sating well, no s/s of resp.distress or sob noted at this time, pt is on bedside monitor show controlled a fib @ 80's bpm, no s/s of chest pain or discomfort at this time, pt has otg, running gyltrol @ 30ml/hr, flushing well, tolerating well, no residuals at this time, pt has brynn picc line, running tko, c/d/i/patent,flushing well, no s/s of infection/ infiltration noted at this time, f/c draining yellow urine to gravity, all safety measures in place at all times, call light within easy reach, will monitor pt closely for changes Addendum: 07/09/17 at 0815 by ARIANA HUGHES RN wrong entry
[2017-07-09] MEDS: IV D5W 1,000 ML IV PRN ×2 (07:30→18:38)
--- NOTE | 2017-07-09 07:51 | NUR ---
RT PT RECEIVED ORALLY INTUBATED WITH A 7.0 ETT SECURED AT 22CM AT THE LIP LINE. PT RESPONDS TO STIMULI. VENT ALARMS ARE SET AND AUDIBLE WITH BVM BY BEDSIDE. PERFORATOR OPERATOR OIL WELL CUFF PRESSURE NOTED. VENT IS PLUGGED INTO RED OUTLET. WILL CONTINUE TO MONITOR. Addendum: 07/09/17 at 1120 by CHARBEL JENKINS RT Amended: Links added.
--- NOTE | 2017-07-09 08:20 | NUR ---
icu note levo put on hold, pt bp wnl
[2017-07-09] MEDS: HYDROCORTISONE SOD SUCCINATE 100 MG/2 ML VIAL IV SCH ×3 (08:54→16:34)
[2017-07-09] MEDS: FAMOTIDINE/PF INJ 20 MG/2 ML VIAL IV SCH ×2 (08:54→21:00)
[2017-07-09] MEDS: NYSTATIN TOP POWDER 15 GM BOTTLE TP SCH ×2 (08:55→16:34)
[2017-07-09] MEDS: HYDROGEL DRESSING 90 GM TUBE TP SCH (08:55)
[2017-07-09] MEDS: CADEXOMER IODINE 40 GM TUBE TP SCH (08:55)
--- NOTE | 2017-07-09 08:57 | NUR ---
ICU NOTE LEVO RESTARTED @2MCG/MIN
--- NOTE | 2017-07-09 09:39 | NUR ---
ICU NOTE LEVO HELD BP 147/72
--- NOTE | 2017-07-09 11:00 | NUR ---
icu note dr. bates made rounds, aware of all labs and results,no new orders at this time
[2017-07-09] MEDS: INSULIN REGULAR, HUMAN 100 UNIT/ML 3 ML VIAL SQ PRN ×2 (12:08→18:18)
--- NOTE | 2017-07-09 12:12 | NUR ---
icu note asked pt if in pain, she nodded head yes, morphine given per md order, will reassess per protocol
--- NOTE | 2017-07-09 17:00 | NUR ---
icu note wound care given.
[2017-07-09] MEDS: MICAFUNGIN SODIUM 100 MG in IV NS 0.9% 100 ML IV SCH (17:57)
[2017-07-09] MEDS: NOREPINEPHRINE 16 MG in IV D5W 500 ML IV PRN (18:04)
--- NOTE | 2017-07-09 18:21 | NUR ---
icu note family at bedside,updated, all questions and concerns answered
--- NOTE | 2017-07-09 18:43 | NUR ---
icu note updated regarding family's wishes to move to comfort measures tonight, orders for morphine 4mg q1h, ativan 2mg q1h given, all orders ack
[2017-07-09] MEDS ORDERED: MORPHINE SULFATE INJ 2 MG/ML DISP.SYRIN IV PRN (19:00)
[2017-07-09] MEDS ORDERED: LORAZEPAM INJ 2 MG/ML VIAL IV PRN (19:00)
--- NOTE | 2017-07-09 19:08 | NUR ---
COORDINATED WITH FAMILY AT BEDSIDE, THEY STATE THAT THEY WILL GO HOME AND BE WITH THE MOTHER AND SHE WILL CALL AROUND 10PM FOR TERMINAL EXTUBATION. DR. CARMONA UPDATED ABOUT PLAN OF CARE, ORDERS OKAY TO CHANGE CODE STATUS TO COMFORT CARE, DC ALL MEDICATIONS EXCEPT FOR COMFORT MEDS, DC ALL LABS, IMAGING ORDERS, AND NON COMFORT FOCUSED TREATMENTS, TERMINALLY EXTUBATE. PLAN GIVEN IN REPORT TO PM CHARGE NURSE
--- NOTE | 2017-07-09 19:30 | NUR ---
BAR FINISH OPERATOR INITIAL NOTE RECEIVED PATIENT FROM ARIANA CARRASQUILLO. PT IN BED. INTUBATED. PT IS AWAKE AND ALERT BUT UNABLE TO ASSESS ORIENTATION. ETT 7.0 22 CM LIP, TOLERATING CURRENT VENT SETTINGS. LUNG SOUNDS RHONCHI. BOWEL SOUNDS PRESENT WITH FLEXISEAL INTACT. RIGHT NARE NGT. SALAZAR INTACT DRAINING MINIMAL URINE. SKIN IS EDEMATOUS THROUGHOUT WITH MULTIPLE BLISTERS. PT SKIN IS WEEPING. IV PATENT AND INTACT RIGHT IJ TLC. PER DAY NURSE, AWAITING PONick ALANIZ MOTHER TO CALL FOR INSTRUCTIONS REGARDING TERMINAL EXTUBATION. BED IN LOW LOCKED POSITION. WILL CONTINUE TO MONITOR.
--- NOTE | 2017-07-09 21:45 | NUR ---
ROPE MAKER KATTY PRESSLEY MOTHER CALLED, SAYS SHE WILL BE HERE SOON REGARDING EXTUBATION.
--- NOTE | 2017-07-09 22:43 | NUR ---
RT Pt extubated for comfort per MD.
--- NOTE | 2017-07-09 22:43 | NUR ---
EXTUBATED [id number]. FAMILY AT BEDSIDE.
--- NOTE | 2017-07-09 23:08 | NUR ---
PT IS ON COMFORT MEASURES ONLY. TERMINAL EXTUBATION DONE AT 22.43. NO PULSES ON MAJOR ARTERIES, NO HEART BEATS. EKG-STRAIGHT LINE. NO LUNG SOUNDS. NO GAG OR CORNEAL REFLEXES. PUPILS ARE FIXED & DILATED. PT WAS PRONOUNCED AT 23.08. BY ICU DIRECTOR EMPLOYEE SAFETY AND HEALTH.
--- NOTE | 2017-07-09 23:08 | NUR ---
MONOTYPE MECHANIC PATIENT AT 230. PRONOUNCED BY CHARGE NURSE GEETA BRIAN. FAMILY AT BEDSIDE. WILL MAKE CALLS TO [employer] AND [employer].
== END 2017-07-09 23:08 | disposition expired | DRG 720 ==
LOC: ER 00:47 → ICU 02:38
PROVIDERS: ADMIT Internal Medicine; ATTEND Internal Medicine
PROC: 5A1D60Z (ICD-10-PCS; principal; 2017-07-03)
PROC: B548ZZA Ultrasonography of Superior Vena Cava, Guidance (ICD-10-PCS; principal; 2017-07-03)
PROC: 0BH17EZ Insertion of Endotracheal Airway into Trachea, Via Natural or Artificial Opening (ICD-10-PCS; principal; 2017-07-03)
PROC: 05H633Z Insertion of Infusion Device into Left Subclavian Vein, Percutaneous Approach (ICD-10-PCS; principal; 2017-07-03)
PROC: 02HV33Z Insertion of Infusion Device into Superior Vena Cava, Percutaneous Approach (ICD-10-PCS; principal; 2017-07-03)
PROC: 5A12012 Performance of Cardiac Output, Single, Manual (ICD-10-PCS; principal; 2017-07-03)
PROC: 5A1955Z Respiratory Ventilation, Greater than 96 Consecutive Hours (ICD-10-PCS; principal; 2017-07-03)
DX: A41.9 Sepsis, unspecified organism (principal); I21.4 Non-ST elevation (NSTEMI) myocardial infarction; I46.9 Cardiac arrest, cause unspecified; J96.21 Acute and chronic respiratory failure with hypoxia; I26.99 Other pulmonary embolism without acute cor pulmonale; J69.0 Pneumonitis due to inhalation of food and vomit; G93.41 Metabolic encephalopathy; D68.9 Coagulation defect, unspecified; E11.22 Type 2 diabetes mellitus with diabetic chronic kidney disease; Z51.5 Encounter for palliative care; K72.00 Acute and subacute hepatic failure without coma; E87.4 Mixed disorder of acid-base balance; L89.153 Pressure ulcer of sacral region, stage 3; B36.9 Superficial mycosis, unspecified; N17.0 Acute kidney failure with tubular necrosis; G93.1 Anoxic brain damage, not elsewhere classified; R65.21 Severe sepsis with septic shock; I48.91 Unspecified atrial fibrillation; I25.10 Atherosclerotic heart disease of native coronary artery without angina pectoris; I50.33 Acute on chronic diastolic (congestive) heart failure; I13.0 Hypertensive heart and chronic kidney disease with heart failure and stage 1 through stage 4 chronic kidney disease, or unspecified chronic kidney disease; E27.8 Other specified disorders of adrenal gland; K21.9 Gastro-esophageal reflux disease without esophagitis; N18.9 Chronic kidney disease, unspecified; Z87.891 Personal history of nicotine dependence; Z86.711 Personal history of pulmonary embolism; J96.22 Acute and chronic respiratory failure with hypercapnia; E87.5 Hyperkalemia; E83.52 Hypercalcemia; F31.9 Bipolar disorder, unspecified; E88.81 Metabolic syndrome and other insulin resistance; R74.0 Nonspecific elevation of levels of transaminase and lactic acid dehydrogenase [LDH]; E11.649 Type 2 diabetes mellitus with hypoglycemia without coma; Z79.899 Other long term (current) drug therapy; L98.9 Disorder of the skin and subcutaneous tissue, unspecified; L89.620 Pressure ulcer of left heel, unstageable; Z68.41 Body mass index [BMI] 40.0-44.9, adult; D62 Acute posthemorrhagic anemia; B37.49 Other urogenital candidiasis; E11.51 Type 2 diabetes mellitus with diabetic peripheral angiopathy without gangrene; E83.39 Other disorders of phosphorus metabolism; E87.1 Hypo-osmolality and hyponatremia; L89.890 Pressure ulcer of other site, unstageable; Z66 Do not resuscitate; R23.0 Cyanosis; R40.20 Unspecified coma; I83.022 Varicose veins of left lower extremity with ulcer of calf; L97.229 Non-pressure chronic ulcer of left calf with unspecified severity; N39.0 Urinary tract infection, site not specified; E11.42 Type 2 diabetes mellitus with diabetic polyneuropathy; E11.621 Type 2 diabetes mellitus with foot ulcer; E11.65 Type 2 diabetes mellitus with hyperglycemia; E66.01 Morbid (severe) obesity due to excess calories; J44.1 Chronic obstructive pulmonary disease with (acute) exacerbation; L30.4 Erythema intertrigo; L97.429 Non-pressure chronic ulcer of left heel and midfoot with unspecified severity; M81.0 Age-related osteoporosis without current pathological fracture; Z79.01 Long term (current) use of anticoagulants; Z79.84 Long term (current) use of oral hypoglycemic drugs; I25.2 Old myocardial infarction; F20.9 Schizophrenia, unspecified
CPT/HCPCS: 31720; 36415; 36600; 71010-TC; 76770-TC; 80048-TC; 80053-TC; 80076-TC; 80202-TC; 81000-TC; 82140-TC; 82550-TC; 82553-TC; 82570-TC; 82803-TC; 82962-TC; 83605-TC; 83735-TC; 83880; 83970; 84100-TC; 84155; 84155-TC; 84165; 84300-TC; 84484-TC; 85025-TC; 85378-TC; 85730-TC; 87040-TC; 87081-TC; 87086-TC; 90935-TC; 92950-TC; 93307-TC; 94002-TC; 94003-TC; 94762-TC; 95819-TC; 99082-TC; A4216; A4606; A6248; A6253; A6402; A6403; C1750; C1751; J0171; J0610; J0696; J1265; J1450; J1720; J1815; J2060; J2248; J2270; J2370; J2543; J3370; J3475; J3490; J7030; J7040; J7042; J7050; J7060; J7070; J7120; P9047; Z7610